=== PATIENT | female | born 1940 | race Two or more races ===

== ENCOUNTER 2022-08-06 10:37 | Inpatient (IN) | payer MEDICAID, OTHER ==
[~2022-08-06] VITALS: Ht 157.5 cm; Wt 38.8 kg
[2022-08-06] MEDS ORDERED: ACETAMINOPHEN 325 MG TAB PO ONE (11:00)
[2022-08-06] MEDS ORDERED: SODIUM CHLORIDE 0.9% 500 ML IVB ONE (11:00)
[2022-08-06 11:25] LABS: Basophils # (auto) 0.1 10 ^3/uL (0-0.2); Eosinophils # (auto) 0.1 10 ^3/uL (0-0.8)
[2022-08-06 11:27] LABS: Basophils % (auto) 0.5 % (0.0-2.0); Eosinophils % (auto) 0.5 % (0.0-7.0); Hematocrit 39.1 % (36.0-46.0); Hemoglobin 12.5 g/dL (12.2-16.2); Lymphocytes # (auto) 0.9 10 ^3/uL (0.4-5.4); Lymphocytes % (auto) 6.6 % (10.0-50.0); Monocytes # (auto) 0.6 10 ^3/uL (0-1.3); Monocytes % (auto) 4.6 % (0.0-12.0); Neutrophils % (auto) 87.8 % (37.0-80.0); Nucleated Red Blood Cells % 0.1 %; Red Blood Cells 5.43 10^6/uL (4.0-5.20); White Blood Cell 13.7 10^3/uL (4.4-10.8)
[2022-08-06 11:42] LABS: INR 1.03 (0.9-1.15); Partial Thromboplastin Time 29.6 sec (24.6-33.4)
[2022-08-06] MEDS ORDERED: cefTRIAXone 1GM/50ML D5W 50 ML IV ONE (11:45)
[2022-08-06] MEDS ORDERED: levoFLOXacin 500MG 100 ML IV ONE (11:45)
[2022-08-06 11:58] LABS: Albumin 2.8 g/dL (3.4-5.0); Calcium 9.9 mg/dL (8.5-10.1); Magnesium 2.5 mg/dL (1.6-2.6); Potassium 5.1 mmol/L (3.5-5.1)
[2022-08-06 12:02] LABS: BUN/Creatinine Ratio 14.6 (10.0-20.0); Bilirubin, Total 0.4 mg/dL (0.2-1.0); Total Protein 7.3 g/dL (6.4-8.2)
[2022-08-06 12:12] LABS: Red Cell Distribution Width 20.4 % (11.8-14.3)
[2022-08-06] MEDS ORDERED: NITROGLYCERIN 0.4 MG SL TAB SL PRN (13:00)
[2022-08-06] MEDS ORDERED: MORPHINE SULFATE INJ 2 MG/ml SYRG IV PRN (13:00)
[2022-08-06] MEDS ORDERED: levoFLOXacin 250MG 50 ML IV SCH (13:15)
[2022-08-06] MEDS ORDERED: PANTOPRAZOLE 40 MG/10 ML VIAL INJ IV ONE (13:15)
[2022-08-06 13:37] LABS: Urine WBC None Seen /hpf (0 - 5)
[2022-08-06] MEDS ORDERED: ALBUTEROL SULF 2.5 MG/0.5ML(0.5%) NEB SOLN NEB PRN (13:45)
[2022-08-06 13:54] LABS: Urine Bacteria NONE SEEN /hpf (None Seen); Urine Blood Negative /uL (Negative); Urine Specific Gravity 1.007 (1.001-1.035)
[2022-08-06] MEDS: SODIUM CHLORIDE 0.9% 1,000 ML IV SCH (14:12)
[2022-08-06] MEDS: AZITHROMYCIN 500MG/ 250ML 250 ML IV SCH (14:40)
[2022-08-06] MEDS: ALBUTEROL SULF 2.5 MG/0.5ML(0.5%) NEB SOLN NEB SCH ×3 (15:08→22:11)
[2022-08-06] MEDS: IPRATROPIUM BROM 0.5 MG/2.5ML INH SOL NEB SCH ×3 (15:10→22:11)
[2022-08-06 15:21] LABS: Protein, Urine 69.6 mg/dL (0.0-11.9)
[2022-08-06 15:25] LABS: % Iron Saturation 6.1 % (15-50)
[2022-08-06 15:50] VITALS: BP 91/43
[2022-08-06] MEDS ORDERED: ALBUMIN 5% 50 ML IV ONE ×2 (16:30)
[2022-08-06 18:40] LABS: Hepatitis C Antibody Negative (Negative)
[2022-08-07] MEDS: ALBUTEROL SULF 2.5 MG/0.5ML(0.5%) NEB SOLN NEB SCH ×6 (01:58→22:13)
[2022-08-07] MEDS: IPRATROPIUM BROM 0.5 MG/2.5ML INH SOL NEB SCH ×6 (01:58→22:12)
[2022-08-07] MEDS: SODIUM CHLORIDE 0.9% 1,000 ML IV SCH ×2 (03:59→15:40)
[2022-08-07 06:08] LABS: Calcium 9.2 mg/dL (8.5-10.1); Potassium 4.2 mmol/L (3.5-5.1)
[2022-08-07 06:11] LABS: BUN/Creatinine Ratio 13.6 (10.0-20.0)
[2022-08-07 06:14] LABS: Bilirubin, Total 0.2 mg/dL (0.2-1.0); Total Protein 6.4 g/dL (6.4-8.2)
[2022-08-07 06:22] LABS: Eosinophils # (auto) 0.1 10 ^3/uL (0-0.8); Monocytes # (auto) 0.7 10 ^3/uL (0-1.3); Neutrophils # (auto) 8.8 10 ^3/uL (1.6-8.6); White Blood Cell 10.5 10^3/uL (4.4-10.8)
[2022-08-07 06:24] LABS: Basophils # (auto) 0 10 ^3/uL (0-0.2); Basophils % (auto) 0.4 % (0.0-2.0); Eosinophils % (auto) 0.8 % (0.0-7.0); Hematocrit 33.4 % (36.0-46.0); Hemoglobin 10.5 g/dL (12.2-16.2); Lymphocytes # (auto) 0.8 10 ^3/uL (0.4-5.4); Lymphocytes % (auto) 7.6 % (10.0-50.0); Mean Corpuscular Hemoglobin 23.1 pg (28.0-32.0); Mean Corpuscular Hgb Conc. 31.4 g/dL (32.0-36.0); Mean Corpuscular Volume 73.5 fL (80.0-100.0); Neutrophils % (auto) 84.2 % (37.0-80.0); Red Blood Cells 4.54 10^6/uL (4.0-5.20); Red Cell Distribution Width 19.6 % (11.8-14.3)
[2022-08-07] MEDS: ACETAMINOPHEN 325 MG TAB PO PRN ×2 (06:56→23:36)
[2022-08-07] MEDS: cefTRIAXone 1GM/50ML D5W 50 ML IV SCH (09:07)
[2022-08-07] MEDS: PANTOPRAZOLE 40 MG/10 ML VIAL INJ IV SCH (10:15)
[2022-08-07] MEDS: AZITHROMYCIN 500MG/ 250ML 250 ML IV SCH (10:16)
[2022-08-07] MEDS: ENOXAPARIN SOD 30 MG/0.3 ML SYRINGE SC SCH (10:16)
[2022-08-07 16:42] VITALS: BP 152/82
[2022-08-07 22:00] VITALS: BP 156/100
[2022-08-07] MEDS ORDERED: ALPR0.5T8 PO (22:51)
[2022-08-08] MEDS ORDERED: ALPRAZolam 0.25 MG TAB PO ONE ×2 (00:45→01:00)
[2022-08-08] MEDS ORDERED: ALPRAZolam 0.25 MG TAB PO PRN ×5 (01:00→22:00)
[2022-08-08] MEDS: IPRATROPIUM BROM 0.5 MG/2.5ML INH SOL NEB SCH ×6 (02:00→21:44)
[2022-08-08] MEDS: ALBUTEROL SULF 2.5 MG/0.5ML(0.5%) NEB SOLN NEB SCH ×6 (02:00→21:44)
[2022-08-08 05:00] VITALS: BP 133/83
[2022-08-08] MEDS: SODIUM CHLORIDE 0.9% 1,000 ML IV SCH ×2 (05:10→16:00)
[2022-08-08 08:10] VITALS: BP 119/66
[2022-08-08 09:00] VITALS: BP 119/66
[2022-08-08] MEDS: PANTOPRAZOLE 40 MG/10 ML VIAL INJ IV SCH (09:15)
[2022-08-08] MEDS: ENOXAPARIN SOD 30 MG/0.3 ML SYRINGE SC SCH (09:15)
[2022-08-08] MEDS: cefTRIAXone 1GM/50ML D5W 50 ML IV SCH (09:15)
[2022-08-08] MEDS: AZITHROMYCIN 500MG/ 250ML 250 ML IV SCH (10:26)
[2022-08-08 13:00] VITALS: BP 122/72
[2022-08-08 14:43] LABS: Basophils % (auto) 0.5 % (0.0-2.0); Eosinophils # (auto) 0.2 10 ^3/uL (0-0.8); Hemoglobin 11.4 g/dL (12.2-16.2); Monocytes # (auto) 0.6 10 ^3/uL (0-1.3); Neutrophils # (auto) 7.2 10 ^3/uL (1.6-8.6); Nucleated Red Blood Cells % 0.1 %
[2022-08-08 14:44] LABS: Basophils # (auto) 0 10 ^3/uL (0-0.2); Eosinophils % (auto) 1.8 % (0.0-7.0); Hematocrit 35.6 % (36.0-46.0); Lymphocytes # (auto) 1.6 10 ^3/uL (0.4-5.4); Mean Corpuscular Hemoglobin 23.1 pg (28.0-32.0); Mean Corpuscular Hgb Conc. 31.9 g/dL (32.0-36.0); Mean Corpuscular Volume 72.4 fL (80.0-100.0); Monocytes % (auto) 5.8 % (0.0-12.0); Neutrophils % (auto) 74.9 % (37.0-80.0); Red Blood Cells 4.92 10^6/uL (4.0-5.20); Red Cell Distribution Width 20.1 % (11.8-14.3); White Blood Cell 9.7 10^3/uL (4.4-10.8)
[2022-08-08 15:17] LABS: BUN/Creatinine Ratio 13.6 (10.0-20.0); Calcium 9.5 mg/dL (8.5-10.1); Potassium 4.3 mmol/L (3.5-5.1)
[2022-08-08 17:00] VITALS: BP 125/74
[2022-08-08 22:00] VITALS: BP 136/78
[2022-08-09] MEDS: SODIUM CHLORIDE 0.9% 1,000 ML IV SCH (01:59)
[2022-08-09] MEDS: ALBUTEROL SULF 2.5 MG/0.5ML(0.5%) NEB SOLN NEB SCH ×4 (02:00→14:30)
[2022-08-09] MEDS: IPRATROPIUM BROM 0.5 MG/2.5ML INH SOL NEB SCH ×4 (02:00→14:30)
[2022-08-09 05:00] VITALS: BP 146/87
[2022-08-09] MEDS: cefTRIAXone 1GM/50ML D5W 50 ML IV SCH (08:41)
[2022-08-09] MEDS: PANTOPRAZOLE 40 MG/10 ML VIAL INJ IV SCH (08:41)
[2022-08-09] MEDS: ENOXAPARIN SOD 30 MG/0.3 ML SYRINGE SC SCH (08:41)
[2022-08-09 09:00] VITALS: BP 153/78
[2022-08-09] MEDS: AZITHROMYCIN 500MG/ 250ML 250 ML IV SCH (10:13)
[2022-08-09 10:48] VITALS: BP 133/78
[2022-08-09 13:00] VITALS: BP 116/76
[2022-08-09] MEDS ORDERED: AZIT250T8 PO (16:30)
[2022-08-09 16:48] VITALS: BP 142/87
[2022-08-09 16:51] VITALS: BP 142/87
[2022-08-10] MEDS ORDERED: LACT10SO3 PO (16:30)
== END 2022-08-09 18:30 | disposition home or self-care (01) | DRG 720 ==
LOC: ER 10:37 → TELE 13:03 → TELE-WESTW 08-07 15:27
PROVIDERS: ADMIT Nurse Practitioner Family; ATTEND Internal Medicine
DX: A41.9 Sepsis, unspecified organism (principal); N17.0 Acute kidney failure with tubular necrosis; J96.01 Acute respiratory failure with hypoxia; J15.6 Pneumonia due to other Gram-negative bacteria; I12.0 Hypertensive chronic kidney disease with stage 5 chronic kidney disease or end stage renal disease; N18.6 End stage renal disease; E11.22 Type 2 diabetes mellitus with diabetic chronic kidney disease; Z20.822 Contact with and (suspected) exposure to COVID-19; J44.0 Chronic obstructive pulmonary disease with (acute) lower respiratory infection; E86.0 Dehydration; E78.5 Hyperlipidemia, unspecified; E11.40 Type 2 diabetes mellitus with diabetic neuropathy, unspecified; F41.9 Anxiety disorder, unspecified; K21.9 Gastro-esophageal reflux disease without esophagitis; Z86.11 Personal history of tuberculosis; E88.09 Other disorders of plasma-protein metabolism, not elsewhere classified
CPT/HCPCS: 36415; 70450; 71045; 76775; 80048; 80053; 81001; 82140; 82306; 82570; 82728; 83036; 83540; 83550; 83605; 83735; 83970; 84100; 84156; 84300; 84484; 85025; 85610; 85730; 86803; 87040; 87340; 87426; 93005; 94640; 96365; 96368; 96375; 97110; 97116; 97163; 97530; 99291; C9113; G0378; J0696; J1956

== ENCOUNTER 2022-08-10 11:48 | Emergency (ER) | payer MEDICAID ==
[~2022-08-10] VITALS: Ht 152.4 cm; Wt 46.0 kg
[~2022-08-10 11:48] MED LIST: ALPR0.5T8 PO; AZIT250T8 PO
[2022-08-10] MEDS ORDERED: FLEET ENEMA(ADULT) 135 ML PR ONE ×2 (14:15)
[2022-08-10] MEDS ORDERED: LACTULOSE 20Gm/30ML SOLN PO ONE (14:15)
[2022-08-10 16:25] VITALS: BP 148/92
[2022-08-10] MEDS ORDERED: LACT10SO3 PO (16:30)
== END 2022-08-10 16:54 | disposition home or self-care (01) ==
LOC: ER 11:48
DX: K59.00 Constipation, unspecified (principal); K21.9 Gastro-esophageal reflux disease without esophagitis; Z88.0 Allergy status to penicillin; Z88.1 Allergy status to other antibiotic agents
CPT/HCPCS: 74018

== ENCOUNTER 2022-09-06 11:09 | Inpatient (IN) | payer MEDICAID ==
[~2022-09-06] VITALS: Ht 154.9 cm; Wt 40.3 kg
[~2022-09-06 11:09] MED LIST changes: +AZIT-81 PO; -AZIT250T8 PO; +LACT10SO3 PO
[2022-09-06] MEDS ORDERED: HYDROcodone-ACET 5/325MG TAB PO ONE (13:00)
[2022-09-06 13:35] LABS: Basophils # (auto) 0.1 10 ^3/uL (0-0.2); Basophils % (auto) 1.1 % (0.0-2.0); Eosinophils # (auto) 0.4 10 ^3/uL (0-0.8); Eosinophils % (auto) 5.3 % (0.0-7.0); Hemoglobin 11.9 g/dL (12.2-16.2); Monocytes # (auto) 0.7 10 ^3/uL (0-1.3); Neutrophils # (auto) 4.4 10 ^3/uL (1.6-8.6)
[2022-09-06 13:37] LABS: Hematocrit 36.8 % (36.0-46.0); Lymphocytes # (auto) 1.7 10 ^3/uL (0.4-5.4); Lymphocytes % (auto) 23.3 % (10.0-50.0); Mean Corpuscular Hemoglobin 23.2 pg (28.0-32.0); Mean Corpuscular Hgb Conc. 32.4 g/dL (32.0-36.0); Mean Corpuscular Volume 71.8 fL (80.0-100.0); Neutrophils % (auto) 61.3 % (37.0-80.0); Nucleated Red Blood Cells % 0.1 %; Red Blood Cells 5.13 10^6/uL (4.0-5.20); Red Cell Distribution Width 18.9 % (11.8-14.3); White Blood Cell 7.3 10^3/uL (4.4-10.8)
[2022-09-06 14:20] LABS: Potassium 4.7 mmol/L (3.5-5.1)
[2022-09-06 14:30] LABS: Albumin 2.7 g/dL (3.4-5.0); BUN/Creatinine Ratio 12.3 (10.0-20.0); Bilirubin, Total 0.4 mg/dL (0.2-1.0); Calcium 9.4 mg/dL (8.5-10.1)
[2022-09-06] MEDS ORDERED: SODIUM CHLORIDE 0.9% 1,000 ML IV ONE (17:00)
[2022-09-06] MEDS ORDERED: VANCOMYCIN 1GM/250ML 250 ML IV ONE (17:00)
[2022-09-06] MEDS ORDERED: MORPHINE SULFATE INJ 2 MG/ml SYRG IV PRN (18:15)
[2022-09-06 19:32] LABS: Uric Acid 5.5 mg/dL (2.6-6.0)
[2022-09-06] MEDS: SODIUM CHLORIDE 0.9% 1,000 ML IV SCH (19:36)
[2022-09-06 19:41] LABS: CRP High Sensitivity 7.12 mg/dL (< 0.3)
[2022-09-06 19:46] LABS: INR 1.08 (0.9-1.15); Partial Thromboplastin Time 32.2 sec (24.6-33.4)
[2022-09-07 04:55] LABS: Basophils # (auto) 0.1 10 ^3/uL (0-0.2); Basophils % (auto) 0.8 % (0.0-2.0); Eosinophils # (auto) 0.4 10 ^3/uL (0-0.8); Mean Corpuscular Hemoglobin 23.2 pg (28.0-32.0); Mean Corpuscular Hgb Conc. 32.5 g/dL (32.0-36.0)
[2022-09-07 04:56] LABS: Hematocrit 36.6 % (36.0-46.0); Hemoglobin 11.9 g/dL (12.2-16.2); Lymphocytes # (auto) 1.5 10 ^3/uL (0.4-5.4); Lymphocytes % (auto) 17.7 % (10.0-50.0); Mean Corpuscular Volume 71.6 fL (80.0-100.0); Monocytes # (auto) 0.6 10 ^3/uL (0-1.3); Monocytes % (auto) 6.6 % (0.0-12.0); Neutrophils # (auto) 5.8 10 ^3/uL (1.6-8.6); Neutrophils % (auto) 69.9 % (37.0-80.0); Nucleated Red Blood Cells % 0.1 %; Red Blood Cells 5.11 10^6/uL (4.0-5.20); Red Cell Distribution Width 19.2 % (11.8-14.3); White Blood Cell 8.4 10^3/uL (4.4-10.8)
[2022-09-07 05:17] LABS: BUN/Creatinine Ratio 13.5 (10.0-20.0); Calcium 9.2 mg/dL (8.5-10.1); Potassium 4.7 mmol/L (3.5-5.1)
[2022-09-07] MEDS: ENOXAPARIN SOD 30 MG/0.3 ML SYRINGE SC SCH (08:41)
[2022-09-07] MEDS: SODIUM CHLORIDE 0.9% 1,000 ML IV SCH (10:55)
[2022-09-07] MEDS: ceFAZolin 1GM/50ML 50 ML IV SCH ×2 (14:13→21:58)
[2022-09-07] MEDS ORDERED: POLYETHYLENE GLYCOL 17 GM PWDR PO ONE (15:30)
[2022-09-07] MEDS ORDERED: LACTULOSE 20Gm/30ML SOLN PO PRN (15:30)
[2022-09-07 15:35] VITALS: BP 143/80
[2022-09-07] MEDS: SOD CHL 0.45% 1,000 ML IV SCH (16:23)
[2022-09-07 16:54] VITALS: BP 143/80
[2022-09-07 20:00] VITALS: BP 134/77
[2022-09-07] MEDS ORDERED: TEMAZEPAM 15 MG CAP PO ONE (21:00)
[2022-09-07 21:05] LABS: Urine Bacteria NONE SEEN /hpf (None Seen); Urine Blood Negative /uL (Negative); Urine Specific Gravity 1.006 (1.001-1.035); Urine WBC 9 /hpf (0 - 5)
[2022-09-07 22:00] VITALS: BP 134/77
[2022-09-08] VITALS (9 sets, daily range): BP systolic 134–169; BP diastolic 66–79
[2022-09-08] MEDS: SOD CHL 0.45% 1,000 ML IV SCH ×2 (03:25→11:17)
[2022-09-08] MEDS: ceFAZolin 1GM/50ML 50 ML IV SCH (05:45)
[2022-09-08 06:13] LABS: BUN/Creatinine Ratio 13.6 (10.0-20.0); Calcium 9.5 mg/dL (8.5-10.1); Potassium 4.1 mmol/L (3.5-5.1)
[2022-09-08 06:25] LABS: Basophils # (auto) 0.1 10 ^3/uL (0-0.2); Basophils % (auto) 0.8 % (0.0-2.0); Eosinophils # (auto) 0.3 10 ^3/uL (0-0.8); Eosinophils % (auto) 3.5 % (0.0-7.0); Hematocrit 35.2 % (36.0-46.0); Hemoglobin 11.4 g/dL (12.2-16.2); Lymphocytes # (auto) 1.9 10 ^3/uL (0.4-5.4); Lymphocytes % (auto) 25.7 % (10.0-50.0); Mean Corpuscular Hemoglobin 23.2 pg (28.0-32.0); Mean Corpuscular Hgb Conc. 32.3 g/dL (32.0-36.0); Mean Corpuscular Volume 71.8 fL (80.0-100.0); Monocytes # (auto) 0.7 10 ^3/uL (0-1.3); Monocytes % (auto) 9.4 % (0.0-12.0); Neutrophils # (auto) 4.4 10 ^3/uL (1.6-8.6); Neutrophils % (auto) 60.6 % (37.0-80.0); Nucleated Red Blood Cells % 0.1 %; Red Cell Distribution Width 18.8 % (11.8-14.3); White Blood Cell 7.3 10^3/uL (4.4-10.8)
[2022-09-08] MEDS ORDERED: BUPIVACAINE HCL 50 ML ONE (08:14)
[2022-09-08] MEDS ORDERED: VANCOMYCIN HCL 1000 MG VL ONE (08:18)
[2022-09-08] MEDS ORDERED: GENTAMICIN SULFATE 2 ML ONE (08:18)
[2022-09-08] MEDS ORDERED: MIDAZOLAM HCL 2MG/2ML 2ml VIAL (1mg/ml) ONE (08:51)
[2022-09-08] MEDS ORDERED: fentaNYL CITRATE 100 MCG/2 ML VL ONE (08:51)
[2022-09-08] MEDS ORDERED: SUCCINYLCHOLINE CHLORIDE 20 MG/ML 10ML VIAL IV ONE (08:53)
[2022-09-08] MEDS ORDERED: ONDANSETRON HCL 4 MG/2 ML VIAL ONE (09:01)
[2022-09-08] MEDS ORDERED: LIDOCAINE 2% (LOCAL ANESTH.) PF 5ml SDV ONE (09:01)
[2022-09-08] MEDS ORDERED: NALOXONE HCL 0.4 MG/ML VIAL ONE (09:43)
[2022-09-08] MEDS ORDERED: LACTATED RINGER'S 1,000 ML IV SCH (09:45)
[2022-09-08] MEDS ORDERED: MORPHINE SULFATE INJ 2 MG/ml SYRG IV PRN (10:15)
[2022-09-08] MEDS ORDERED: ONDANSETRON HCL 4 MG/2 ML VIAL IV PRN (10:15)
[2022-09-08] MEDS ORDERED: PROPOFOL 10 MG/ML 20 ML IV ONE (10:38)
[2022-09-08] MEDS: ENOXAPARIN SOD 30 MG/0.3 ML SYRINGE SC SCH (11:17)
[2022-09-08] MEDS: ACETAMINOPHEN 325 MG TAB PO PRN (14:17)
[2022-09-08] MEDS ORDERED: TEMAZEPAM 15 MG CAP PO ONE (22:15)
[2022-09-09] VITALS (7 sets, daily range): BP systolic 148–164; BP diastolic 68–85
[2022-09-09] MEDS: SOD CHL 0.45% 1,000 ML IV SCH ×3 (04:08→15:09)
[2022-09-09 07:36] LABS: Basophils # (auto) 0.1 10 ^3/uL (0-0.2); Hemoglobin 11.2 g/dL (12.2-16.2); Lymphocytes # (auto) 1.7 10 ^3/uL (0.4-5.4); Monocytes # (auto) 0.6 10 ^3/uL (0-1.3)
[2022-09-09 07:38] LABS: Basophils % (auto) 1.1 % (0.0-2.0); Eosinophils # (auto) 0.4 10 ^3/uL (0-0.8); Hematocrit 34.9 % (36.0-46.0); Lymphocytes % (auto) 22.1 % (10.0-50.0); Mean Corpuscular Hemoglobin 23.3 pg (28.0-32.0); Mean Corpuscular Hgb Conc. 32.3 g/dL (32.0-36.0); Mean Corpuscular Volume 72.1 fL (80.0-100.0); Neutrophils # (auto) 4.9 10 ^3/uL (1.6-8.6); Neutrophils % (auto) 63.8 % (37.0-80.0); Red Blood Cells 4.84 10^6/uL (4.0-5.20); White Blood Cell 7.7 10^3/uL (4.4-10.8)
[2022-09-09 07:44] LABS: BUN/Creatinine Ratio 13.2 (10.0-20.0); Potassium 4.7 mmol/L (3.5-5.1)
[2022-09-09] MEDS: PANTOPRAZOLE 40 MG TAB PO SCH (09:37)
[2022-09-09] MEDS: ENOXAPARIN SOD 30 MG/0.3 ML SYRINGE SC SCH (09:40)
[2022-09-09] MEDS: cefTRIAXone 1GM/50ML D5W 50 ML IV SCH (12:08)
[2022-09-09] MEDS: ACETAMINOPHEN 325 MG TAB PO PRN (17:24)
[2022-09-09] MEDS: DOCUSATE SOD 100 MG CAP PO SCH (21:06)
[2022-09-09] MEDS: ALPRAZolam 0.25 MG TAB PO PRN (21:06)
[2022-09-10] MEDS: SOD CHL 0.45% 1,000 ML IV SCH ×3 (00:57→20:48)
[2022-09-10 05:00] VITALS: BP 155/77
[2022-09-10 06:24] LABS: Basophils # (auto) 0.1 10 ^3/uL (0-0.2); Basophils % (auto) 0.8 % (0.0-2.0); Eosinophils # (auto) 0.5 10 ^3/uL (0-0.8); Eosinophils % (auto) 6.4 % (0.0-7.0); Hematocrit 32.5 % (36.0-46.0); Hemoglobin 10.4 g/dL (12.2-16.2); Lymphocytes # (auto) 1.7 10 ^3/uL (0.4-5.4); Lymphocytes % (auto) 21.9 % (10.0-50.0); Mean Corpuscular Hemoglobin 23.2 pg (28.0-32.0); Mean Corpuscular Hgb Conc. 32.2 g/dL (32.0-36.0); Monocytes # (auto) 0.6 10 ^3/uL (0-1.3); Monocytes % (auto) 7.2 % (0.0-12.0); Neutrophils # (auto) 5.1 10 ^3/uL (1.6-8.6); Neutrophils % (auto) 63.7 % (37.0-80.0); Red Blood Cells 4.51 10^6/uL (4.0-5.20); Red Cell Distribution Width 19.4 % (11.8-14.3); White Blood Cell 7.9 10^3/uL (4.4-10.8)
[2022-09-10 06:47] LABS: BUN/Creatinine Ratio 11.9 (10.0-20.0); Calcium 9.5 mg/dL (8.5-10.1); Potassium 4.2 mmol/L (3.5-5.1)
[2022-09-10 08:00] VITALS: BP 137/66
[2022-09-10] MEDS: cefTRIAXone 1GM/50ML D5W 50 ML IV SCH (08:39)
[2022-09-10] MEDS: ONDANSETRON HCL 4 MG/2 ML VIAL IV PRN ×3 (08:52→09:46)
[2022-09-10] MEDS: ENOXAPARIN SOD 30 MG/0.3 ML SYRINGE SC SCH (09:44)
[2022-09-10] MEDS: DOCUSATE SOD 100 MG CAP PO SCH ×2 (09:44→20:58)
[2022-09-10] MEDS: PANTOPRAZOLE 40 MG TAB PO SCH (09:44)
[2022-09-10 12:00] VITALS: BP 140/68
[2022-09-10] MEDS: ALPRAZolam 0.25 MG TAB PO PRN (17:31)
[2022-09-10 20:00] VITALS: BP 164/82
[2022-09-10] MEDS: ACETAMINOPHEN 325 MG TAB PO PRN (20:59)
[2022-09-10 22:00] VITALS: BP 143/70
[2022-09-11 05:00] VITALS: BP 146/68
[2022-09-11 06:26] LABS: Basophils # (auto) 0.1 10 ^3/uL (0-0.2); Eosinophils # (auto) 0.3 10 ^3/uL (0-0.8); Hemoglobin 10.3 g/dL (12.2-16.2); Lymphocytes # (auto) 1.7 10 ^3/uL (0.4-5.4); Monocytes # (auto) 0.7 10 ^3/uL (0-1.3)
[2022-09-11 06:28] LABS: Calcium 9.3 mg/dL (8.5-10.1); Potassium 4.5 mmol/L (3.5-5.1)
[2022-09-11 06:29] LABS: Basophils % (auto) 1.1 % (0.0-2.0); Eosinophils % (auto) 4.5 % (0.0-7.0); Hematocrit 31.8 % (36.0-46.0); Lymphocytes % (auto) 24.4 % (10.0-50.0); Mean Corpuscular Hemoglobin 23.2 pg (28.0-32.0); Mean Corpuscular Hgb Conc. 32.4 g/dL (32.0-36.0); Mean Corpuscular Volume 71.6 fL (80.0-100.0); Monocytes % (auto) 10.2 % (0.0-12.0); Neutrophils # (auto) 4.2 10 ^3/uL (1.6-8.6); Neutrophils % (auto) 59.8 % (37.0-80.0); Nucleated Red Blood Cells % 0.1 %; Red Blood Cells 4.44 10^6/uL (4.0-5.20); Red Cell Distribution Width 19.5 % (11.8-14.3)
[2022-09-11] MEDS: PANTOPRAZOLE 40 MG TAB PO SCH (08:14)
[2022-09-11] MEDS: ENOXAPARIN SOD 30 MG/0.3 ML SYRINGE SC SCH (08:14)
[2022-09-11] MEDS: SOD CHL 0.45% 1,000 ML IV SCH (08:14)
[2022-09-11] MEDS: DOCUSATE SOD 100 MG CAP PO SCH ×2 (08:14→20:05)
[2022-09-11] MEDS: cefTRIAXone 1GM/50ML D5W 50 ML IV SCH (08:14)
[2022-09-11] MEDS: amLODIPine BESYLATE 5 MG TAB PO SCH (12:12)
[2022-09-11 13:00] VITALS: BP 164/75
[2022-09-11 17:00] VITALS: BP 152/73
[2022-09-11] MEDS: Ensure Enlive Strawberry 8oz Bottle PO SCH (18:00)
[2022-09-11 20:00] VITALS: BP 159/84
[2022-09-11] MEDS: ALPRAZolam 0.25 MG TAB PO PRN (20:05)
[2022-09-11 22:00] VITALS: BP 159/84
[2022-09-12 05:00] VITALS: BP 161/83
[2022-09-12 06:00] VITALS: BP 154/83
[2022-09-12] MEDS: Ensure Enlive Strawberry 8oz Bottle PO SCH ×3 (08:00→17:50)
[2022-09-12 09:00] VITALS: BP 135/67
[2022-09-12] MEDS: cefTRIAXone 1GM/50ML D5W 50 ML IV SCH (09:27)
[2022-09-12] MEDS: PANTOPRAZOLE 40 MG TAB PO SCH (09:28)
[2022-09-12] MEDS: DOCUSATE SOD 100 MG CAP PO SCH ×2 (09:29→20:50)
[2022-09-12] MEDS: ENOXAPARIN SOD 30 MG/0.3 ML SYRINGE SC SCH (09:29)
[2022-09-12] MEDS: amLODIPine BESYLATE 5 MG TAB PO SCH (09:30)
[2022-09-12] MEDS ORDERED: VANCOMYCIN PER PHARMACY 0 MG IV SCH (11:15)
[2022-09-12] MEDS ORDERED: MICAFUNGIN SODIUM 100 MG in SODIUM CHL 0.9% 100 ML IV SCH (12:00)
[2022-09-12] MEDS ORDERED: VANCOMYCIN 1GM/250ML 250 ML IV ONE (12:00)
[2022-09-12 13:00] VITALS: BP 146/84
[2022-09-12] MEDS: DAPTOmycin 250 MG in SODIUM CHL 0.9% 50 ML IV SCH (13:45)
[2022-09-12 17:00] VITALS: BP 119/74
[2022-09-12 17:41] LABS: INR 1.06 (0.9-1.15); Partial Thromboplastin Time 32.9 sec (24.6-33.4)
[2022-09-12] MEDS: ONDANSETRON HCL 4 MG/2 ML VIAL IV PRN (20:21)
[2022-09-12] MEDS: ALPRAZolam 0.25 MG TAB PO PRN (20:21)
[2022-09-12 22:00] VITALS: BP 145/74
[2022-09-13 05:00] VITALS: BP 150/73
[2022-09-13 09:00] VITALS: BP 133/72
[2022-09-13] MEDS: ONDANSETRON HCL 4 MG/2 ML VIAL IV PRN (09:33)
[2022-09-13] MEDS: ENOXAPARIN SOD 30 MG/0.3 ML SYRINGE SC SCH (09:36)
[2022-09-13] MEDS: PANTOPRAZOLE 40 MG TAB PO SCH (09:36)
[2022-09-13] MEDS: DOCUSATE SOD 100 MG CAP PO SCH ×2 (09:36→22:33)
[2022-09-13] MEDS: cefTRIAXone 1GM/50ML D5W 50 ML IV SCH (09:36)
[2022-09-13] MEDS: amLODIPine BESYLATE 5 MG TAB PO SCH (09:43)
[2022-09-13] MEDS: Ensure Enlive Strawberry 8oz Bottle PO SCH ×2 (09:47→18:00)
[2022-09-13 13:00] VITALS: BP 127/65
[2022-09-13 17:00] VITALS: BP 134/71
[2022-09-13 22:00] VITALS: BP 146/69
[2022-09-13] MEDS: ALPRAZolam 0.25 MG TAB PO PRN (22:33)
[2022-09-14 05:00] VITALS: BP 136/65
[2022-09-14] MEDS: PANTOPRAZOLE 40 MG TAB PO SCH (08:36)
[2022-09-14] MEDS: amLODIPine BESYLATE 5 MG TAB PO SCH (08:39)
[2022-09-14] MEDS: DOCUSATE SOD 100 MG CAP PO SCH ×2 (08:39→21:07)
[2022-09-14] MEDS: ENOXAPARIN SOD 30 MG/0.3 ML SYRINGE SC SCH (08:40)
[2022-09-14] MEDS: cefTRIAXone 1GM/50ML D5W 50 ML IV SCH (08:40)
[2022-09-14] MEDS: Ensure Enlive Strawberry 8oz Bottle PO SCH ×3 (08:45→19:29)
[2022-09-14 09:00] VITALS: BP 146/69
[2022-09-14] MEDS: DAPTOmycin 250 MG in SODIUM CHL 0.9% 50 ML IV SCH (12:00)
[2022-09-14 13:00] VITALS: BP 127/63
[2022-09-14] MEDS: MICAFUNGIN SODIUM 100 MG in SODIUM CHL 0.9% 100 ML IV SCH (13:30)
[2022-09-14 17:00] VITALS: BP 142/69
[2022-09-14] MEDS ORDERED: METOCLOPRAMIDE HCL 5MG/ml INJ 2ml VIAL IV PRN (19:00)
[2022-09-14] MEDS: ALPRAZolam 0.25 MG TAB PO PRN (21:06)
[2022-09-14 22:00] VITALS: BP 150/73
[2022-09-15 05:00] VITALS: BP 132/82
[2022-09-15 09:00] VITALS: BP 150/67
[2022-09-15] MEDS: cefTRIAXone 1GM/50ML D5W 50 ML IV SCH (09:03)
[2022-09-15] MEDS: Ensure Enlive Strawberry 8oz Bottle PO SCH ×3 (09:05→18:00)
[2022-09-15] MEDS: ENOXAPARIN SOD 30 MG/0.3 ML SYRINGE SC SCH (09:51)
[2022-09-15] MEDS: DOCUSATE SOD 100 MG CAP PO SCH ×2 (09:52→22:00)
[2022-09-15] MEDS: amLODIPine BESYLATE 5 MG TAB PO SCH (09:52)
[2022-09-15] MEDS: MICAFUNGIN SODIUM 100 MG in SODIUM CHL 0.9% 100 ML IV SCH (09:53)
[2022-09-15] MEDS: PANTOPRAZOLE 40 MG TAB PO SCH (09:53)
[2022-09-15] MEDS: HYDROcodone-ACET 5/325MG TAB PO PRN (10:11)
[2022-09-15 13:00] VITALS: BP 117/55
[2022-09-15] MEDS ORDERED: CEFD300C2 PO (14:53)
[2022-09-15] MEDS ORDERED: DOXY-346 PO (14:53)
[2022-09-15] MEDS ORDERED: VORI50TA PO ×2 (14:53)
[2022-09-15 17:00] VITALS: BP 154/73
[2022-09-15 22:00] VITALS: BP 149/64
[2022-09-15] MEDS: ALPRAZolam 0.25 MG TAB PO PRN (22:18)
[2022-09-16 05:17] VITALS: BP 139/72
[2022-09-16 06:06] LABS: Eosinophils # (auto) 0.6 10 ^3/uL (0-0.8); Hemoglobin 11.1 g/dL (12.2-16.2); Mean Corpuscular Volume 71.8 fL (80.0-100.0); Monocytes # (auto) 0.8 10 ^3/uL (0-1.3); Nucleated Red Blood Cells % 0.1 %
[2022-09-16 06:09] LABS: Basophils # (auto) 0.3 10 ^3/uL (0-0.2); Basophils % (auto) 4.3 % (0.0-2.0); Eosinophils % (auto) 7.7 % (0.0-7.0); Hematocrit 34.3 % (36.0-46.0); Lymphocytes % (auto) 13.9 % (10.0-50.0); Mean Corpuscular Hemoglobin 23.2 pg (28.0-32.0); Mean Corpuscular Hgb Conc. 32.3 g/dL (32.0-36.0); Monocytes % (auto) 10.6 % (0.0-12.0); Neutrophils # (auto) 4.7 10 ^3/uL (1.6-8.6); Neutrophils % (auto) 63.5 % (37.0-80.0); Red Blood Cells 4.78 10^6/uL (4.0-5.20); White Blood Cell 7.4 10^3/uL (4.4-10.8)
[2022-09-16 06:11] LABS: INR 1.02 (0.9-1.15); Partial Thromboplastin Time 28.4 sec (24.6-33.4)
[2022-09-16 06:17] LABS: Calcium 10.5 mg/dL (8.5-10.1); Potassium 4.8 mmol/L (3.5-5.1)
[2022-09-16 06:19] LABS: BUN/Creatinine Ratio 17.4 (10.0-20.0)
[2022-09-16 06:20] LABS: Red Cell Distribution Width 20.3 % (11.8-14.3)
[2022-09-16 08:00] VITALS: BP 143/66
[2022-09-16] MEDS: Ensure Enlive Strawberry 8oz Bottle PO SCH ×3 (08:00→19:21)
[2022-09-16] MEDS ORDERED: FLUMAZENIL 0.1 MG/ML INJ 10ML MDV IV ONE (08:24)
[2022-09-16] MEDS ORDERED: NALOXONE HCL 0.4 MG/ML VIAL ONE (08:24)
[2022-09-16] MEDS ORDERED: SODIUM CHLORIDE LOCK 0 ML ONE (08:28)
[2022-09-16] MEDS ORDERED: LIDOCAINE VISCOUS 2% 15ML UD ONE ×2 (08:29→13:27)
[2022-09-16] MEDS ORDERED: MIDAZOLAM HCL 5 MG/ML-1ML VIAL ONE (08:29)
[2022-09-16] MEDS ORDERED: diphenhdrAMINE HCL 50 MG/1 ML VL ONE (08:30)
[2022-09-16] MEDS: DOCUSATE SOD 100 MG CAP PO SCH ×2 (10:00→21:58)
[2022-09-16] MEDS: ENOXAPARIN SOD 30 MG/0.3 ML SYRINGE SC SCH (10:00)
[2022-09-16] MEDS: cefTRIAXone 1GM/50ML D5W 50 ML IV SCH (10:15)
[2022-09-16] MEDS: MICAFUNGIN SODIUM 100 MG in SODIUM CHL 0.9% 100 ML IV SCH (10:15)
[2022-09-16] MEDS: amLODIPine BESYLATE 5 MG TAB PO SCH (10:18)
[2022-09-16] MEDS: PANTOPRAZOLE 40 MG TAB PO SCH (10:18)
[2022-09-16] MEDS ORDERED: ITRA100C2 PO (10:21)
[2022-09-16] MEDS: ONDANSETRON HCL 4 MG/2 ML VIAL IV PRN (10:36)
[2022-09-16 13:00] VITALS: BP 135/71
[2022-09-16] MEDS ORDERED: SODIUM CHLORIDE LOCK 10 ML ONE (13:27)
[2022-09-16] MEDS: HYDROcodone-ACET 5/325MG TAB PO PRN (14:26)
[2022-09-16] MEDS: DAPTOmycin 250 MG in SODIUM CHL 0.9% 50 ML IV SCH (14:26)
[2022-09-16] MEDS: fentaNYL CITRATE 100 MCG/2 ML VL ONE ×2 (16:03→16:05)
[2022-09-16 20:00] VITALS: BP 144/69
[2022-09-16] MEDS: ALPRAZolam 0.25 MG TAB PO PRN (21:58)
[2022-09-16 22:00] VITALS: BP 144/69
[2022-09-17 05:00] VITALS: BP 144/77
[2022-09-17] MEDS: Ensure Enlive Strawberry 8oz Bottle PO SCH ×3 (08:00→18:00)
[2022-09-17 09:00] VITALS: BP 136/70
[2022-09-17] MEDS: cefTRIAXone 1GM/50ML D5W 50 ML IV SCH (10:22)
[2022-09-17] MEDS: DOCUSATE SOD 100 MG CAP PO SCH ×2 (10:32→21:42)
[2022-09-17] MEDS: MICAFUNGIN SODIUM 100 MG in SODIUM CHL 0.9% 100 ML IV SCH (10:32)
[2022-09-17] MEDS: PANTOPRAZOLE 40 MG TAB PO SCH (10:32)
[2022-09-17] MEDS: ENOXAPARIN SOD 30 MG/0.3 ML SYRINGE SC SCH (10:33)
[2022-09-17] MEDS: amLODIPine BESYLATE 5 MG TAB PO SCH (10:33)
[2022-09-17 13:00] VITALS: BP 135/61
[2022-09-17 17:00] VITALS: BP 138/72
[2022-09-17 20:00] VITALS: BP 143/68
[2022-09-17] MEDS: ALPRAZolam 0.25 MG TAB PO PRN (21:42)
[2022-09-17 22:00] VITALS: BP 143/68
[2022-09-18 00:26] VITALS: BP 143/69
[2022-09-18 05:00] VITALS: BP 140/74
[2022-09-18 08:55] VITALS: BP 127/57
[2022-09-18] MEDS: Ensure Enlive Strawberry 8oz Bottle PO SCH ×3 (09:39→18:00)
[2022-09-18] MEDS: cefTRIAXone 1GM/50ML D5W 50 ML IV SCH (09:41)
[2022-09-18] MEDS: DOCUSATE SOD 100 MG CAP PO SCH ×2 (09:41→21:32)
[2022-09-18] MEDS: amLODIPine BESYLATE 5 MG TAB PO SCH (09:42)
[2022-09-18] MEDS: ENOXAPARIN SOD 30 MG/0.3 ML SYRINGE SC SCH (09:42)
[2022-09-18] MEDS: PANTOPRAZOLE 40 MG TAB PO SCH (09:42)
[2022-09-18] MEDS: MICAFUNGIN SODIUM 100 MG in SODIUM CHL 0.9% 100 ML IV SCH (09:50)
[2022-09-18 13:00] VITALS: BP 143/65
[2022-09-18] MEDS: DAPTOmycin 250 MG in SODIUM CHL 0.9% 50 ML IV SCH (14:24)
[2022-09-18 20:00] VITALS: BP 145/73
[2022-09-18] MEDS: ALPRAZolam 0.25 MG TAB PO PRN (21:32)
[2022-09-18 22:00] VITALS: BP 145/73
[2022-09-19 05:00] VITALS: BP 136/72
[2022-09-19 08:00] VITALS: BP 138/71
[2022-09-19] MEDS: Ensure Enlive Strawberry 8oz Bottle PO SCH ×2 (08:51→13:41)
[2022-09-19] MEDS: cefTRIAXone 1GM/50ML D5W 50 ML IV SCH (08:52)
[2022-09-19] MEDS: DOCUSATE SOD 100 MG CAP PO SCH ×2 (08:53→21:34)
[2022-09-19] MEDS: amLODIPine BESYLATE 5 MG TAB PO SCH (08:55)
[2022-09-19] MEDS: PANTOPRAZOLE 40 MG TAB PO SCH (09:01)
[2022-09-19] MEDS: ENOXAPARIN SOD 30 MG/0.3 ML SYRINGE SC SCH (09:02)
[2022-09-19 09:22] VITALS: BP 133/72
[2022-09-19] MEDS: MICAFUNGIN SODIUM 100 MG in SODIUM CHL 0.9% 100 ML IV SCH (13:40)
[2022-09-19 14:00] VITALS: BP 138/71
[2022-09-19 17:20] VITALS: BP 136/74
[2022-09-19] MEDS: ALPRAZolam 0.25 MG TAB PO PRN (21:34)
[2022-09-19 22:00] VITALS: BP 135/66
[2022-09-20 05:00] VITALS: BP 137/76
[2022-09-20] MEDS: Ensure Enlive Strawberry 8oz Bottle PO SCH ×4 (07:23→18:07)
[2022-09-20 08:00] VITALS: BP 134/67
[2022-09-20] MEDS: cefTRIAXone 1GM/50ML D5W 50 ML IV SCH (08:41)
[2022-09-20] MEDS: DOCUSATE SOD 100 MG CAP PO SCH ×2 (08:42→21:16)
[2022-09-20] MEDS: PANTOPRAZOLE 40 MG TAB PO SCH (08:44)
[2022-09-20] MEDS: amLODIPine BESYLATE 5 MG TAB PO SCH (08:44)
[2022-09-20] MEDS: ENOXAPARIN SOD 30 MG/0.3 ML SYRINGE SC SCH (08:45)
[2022-09-20 09:00] VITALS: BP 134/67
[2022-09-20] MEDS: MICAFUNGIN SODIUM 100 MG in SODIUM CHL 0.9% 100 ML IV SCH (10:36)
[2022-09-20] MEDS: DAPTOmycin 250 MG in SODIUM CHL 0.9% 50 ML IV SCH (12:47)
[2022-09-20 13:00] VITALS: BP 136/74
[2022-09-20 17:00] VITALS: BP 135/62
[2022-09-20] MEDS: ALPRAZolam 0.25 MG TAB PO PRN (21:16)
[2022-09-20 22:00] VITALS: BP 147/76
[2022-09-21 05:00] VITALS: BP 137/80
[2022-09-21] MEDS: Ensure Enlive Strawberry 8oz Bottle PO SCH ×2 (08:20→12:27)
[2022-09-21] MEDS: cefTRIAXone 1GM/50ML D5W 50 ML IV SCH (08:57)
[2022-09-21 09:19] VITALS: BP 136/79
[2022-09-21] MEDS: ENOXAPARIN SOD 30 MG/0.3 ML SYRINGE SC SCH (10:00)
[2022-09-21] MEDS: MICAFUNGIN SODIUM 100 MG in SODIUM CHL 0.9% 100 ML IV SCH (10:00)
[2022-09-21] MEDS: DOCUSATE SOD 100 MG CAP PO SCH (10:31)
[2022-09-21] MEDS: PANTOPRAZOLE 40 MG TAB PO SCH (10:31)
[2022-09-21] MEDS: amLODIPine BESYLATE 5 MG TAB PO SCH (10:33)
[2022-09-21 13:00] VITALS: BP 141/69
[2022-09-21 14:15] VITALS: BP 141/69
== END 2022-09-21 14:30 | disposition home or self-care (01) | DRG 313 ==
LOC: ER 11:09 → OVERFLOW 18:30 → CENTRAL 09-07 15:40
PROVIDERS: ADMIT Registered Nurse; ATTEND Nurse Practitioner Acute Care
PROC: 3E0V329 Introduction of Other Anti-infective into Bones, Percutaneous Approach (ICD-10-PCS; 2022-09-08)
PROC: 0QBG0ZZ Excision of Right Tibia, Open Approach (ICD-10-PCS; principal; 2022-09-08 08:52)
PROC: 0DB98ZX Excision of Duodenum, Via Natural or Artificial Opening Endoscopic, Diagnostic (ICD-10-PCS; 2022-09-16)
PROC: 0DB68ZX Excision of Stomach, Via Natural or Artificial Opening Endoscopic, Diagnostic (ICD-10-PCS; 2022-09-16)
DX: M86.8X6 Other osteomyelitis, lower leg (principal); N17.0 Acute kidney failure with tubular necrosis; M00.9 Pyogenic arthritis, unspecified; E43 Unspecified severe protein-calorie malnutrition; D63.1 Anemia in chronic kidney disease; E88.09 Other disorders of plasma-protein metabolism, not elsewhere classified; M06.9 Rheumatoid arthritis, unspecified; K21.9 Gastro-esophageal reflux disease without esophagitis; K44.9 Diaphragmatic hernia without obstruction or gangrene; K29.70 Gastritis, unspecified, without bleeding; I12.9 Hypertensive chronic kidney disease with stage 1 through stage 4 chronic kidney disease, or unspecified chronic kidney disease; N18.4 Chronic kidney disease, stage 4 (severe); E78.5 Hyperlipidemia, unspecified; F41.9 Anxiety disorder, unspecified; Z86.11 Personal history of tuberculosis; Z88.0 Allergy status to penicillin; Z79.899 Other long term (current) drug therapy; Z68.1 Body mass index [BMI] 19.9 or less, adult
CPT/HCPCS: 36415; 43239; 71045; 73560; 73562; 73700; 74018; 76000; 80048; 80053; 81001; 82550; 84484; 84550; 85025; 85610; 85652; 85730; 86141; 86431; 86701; 87075; 87086; 87205; 96361; 96365; 97110; 97116; 97163; 97530; G0378; J0330; J0690; J0696; J2001; J2248; J2250; J2405; J2704; J3490

== ENCOUNTER 2022-09-28 20:48 | Inpatient (IN) | payer MEDICAID ==
[~2022-09-28] VITALS: Ht 142.2 cm; Wt 38.0 kg
[~2022-09-28 20:48] MED LIST changes: -AZIT-81 PO; +CEFD300C2 PO; +DOXY-346 PO; +ITRA100C2 PO
[2022-09-28 21:54] LABS: Urine Bacteria NONE SEEN /hpf (None Seen); Urine Blood Negative /uL (Negative); Urine Hyaline Cast FEW /lpf (0 - 2); Urine Specific Gravity 1.009 (1.001-1.035); Urine WBC 1 /hpf (0 - 5)
[2022-09-28 22:06] LABS: Basophils # (auto) 0.1 10 ^3/uL (0-0.2); Eosinophils # (auto) 0 10 ^3/uL (0-0.8); Hemoglobin 12.4 g/dL (12.2-16.2); Lymphocytes # (auto) 0.9 10 ^3/uL (0.4-5.4); Mean Corpuscular Hgb Conc. 31.8 g/dL (32.0-36.0); Monocytes # (auto) 0.5 10 ^3/uL (0-1.3); White Blood Cell 11.8 10^3/uL (4.4-10.8)
[2022-09-28 22:08] LABS: Basophils % (auto) 0.8 % (0.0-2.0); Eosinophils % (auto) 0.2 % (0.0-7.0); Hematocrit 39.1 % (36.0-46.0); Lymphocytes % (auto) 7.7 % (10.0-50.0); Mean Corpuscular Hemoglobin 23.2 pg (28.0-32.0); Mean Corpuscular Volume 72.9 fL (80.0-100.0); Monocytes % (auto) 3.9 % (0.0-12.0); Neutrophils # (auto) 10.3 10 ^3/uL (1.6-8.6); Neutrophils % (auto) 87.4 % (37.0-80.0); Nucleated Red Blood Cells % 0.2 %; Red Blood Cells 5.36 10^6/uL (4.0-5.20)
[2022-09-28 22:29] LABS: Albumin 3.2 g/dL (3.4-5.0); Calcium 11.3 mg/dL (8.5-10.1); Magnesium 2.4 mg/dL (1.6-2.6); Potassium 4.9 mmol/L (3.5-5.1)
[2022-09-28 22:34] LABS: Lactic Acid w/Reflex 2.2 mmol/L (0.4-2.0)
[2022-09-28 22:39] LABS: BUN/Creatinine Ratio 25.1 (10.0-20.0); Total Protein 9.1 g/dL (6.4-8.2)
[2022-09-29] MEDS ORDERED: PIPERACILLIN-TAZOB 3.375GM 100 ML IV ONE (01:45)
[2022-09-29] MEDS ORDERED: LACTATED RINGER'S 1,550 ML IV ONE (01:45)
[2022-09-29] MEDS ORDERED: metroNIDAZOLE 500MG/100ML 100 ML IV ONE (01:45)
[2022-09-29] MEDS ORDERED: MORPHINE SULFATE 4 MG/ML SYR/VIAL IV ONE (02:30)
[2022-09-29] MEDS ORDERED: ONDANSETRON HCL 4 MG/2 ML VIAL IV ONE (02:30)
[2022-09-29] MEDS ORDERED: HYDROcodone-ACET 5/325MG TAB PO PRN (02:45)
[2022-09-29] MEDS ORDERED: ACETAMINOPHEN 325 MG TAB PO PRN (02:45)
[2022-09-29] MEDS ORDERED: SODIUM CHLORIDE 0.9% 1,000 ML IV SCH (02:45)
[2022-09-29] MEDS ORDERED: MORPHINE SULFATE INJ 2 MG/ml SYRG IV PRN (02:45)
[2022-09-29] MEDS: ONDANSETRON HCL 4 MG/2 ML VIAL IV PRN (05:56)
[2022-09-29] MEDS ORDERED: DOXYCYCLINE 100 MG TAB/CAP PO SCH (10:00)
[2022-09-29] MEDS ORDERED: ITRACONAZOLE 100 MG CAP PO SCH (10:00)
[2022-09-29] MEDS ORDERED: CEFDINIR 300 MG PO SCH (10:00)
[2022-09-29 13:45] VITALS: BP 158/81
[2022-09-29] MEDS: cefTRIAXone 1GM/50ML D5W 50 ML IV SCH (14:37)
[2022-09-29] MEDS: LACTATED RINGER'S 1,000 ML IV SCH ×2 (16:53→21:43)
[2022-09-29] MEDS: MORPHINE SULFATE INJ 2 MG/ml SYRG IV PRN (16:56)
[2022-09-29 17:00] VITALS: BP 153/76
[2022-09-29] MEDS ORDERED: OMEP20TA PO (18:59)
[2022-09-29] MEDS: MICAFUNGIN SODIUM 100 MG in SODIUM CHL 0.9% 100 ML IV SCH (20:33)
[2022-09-29 22:00] VITALS: BP 143/69
[2022-09-30] MEDS: MORPHINE SULFATE INJ 2 MG/ml SYRG IV PRN ×3 (04:51→15:55)
[2022-09-30 05:00] VITALS: BP_SYST 130; BP_SYST 151; BP_DIAS 43; BP_DIAS 76
[2022-09-30 08:05] LABS: Basophils # (auto) 0.1 10 ^3/uL (0-0.2); Basophils % (auto) 0.7 % (0.0-2.0); Eosinophils # (auto) 0.1 10 ^3/uL (0-0.8); Eosinophils % (auto) 0.4 % (0.0-7.0); Hematocrit 35.8 % (36.0-46.0); Hemoglobin 11.3 g/dL (12.2-16.2); Lymphocytes # (auto) 1.3 10 ^3/uL (0.4-5.4); Lymphocytes % (auto) 8.4 % (10.0-50.0); Mean Corpuscular Hemoglobin 23.9 pg (28.0-32.0); Mean Corpuscular Hgb Conc. 31.5 g/dL (32.0-36.0); Mean Corpuscular Volume 75.9 fL (80.0-100.0); Monocytes # (auto) 0.9 10 ^3/uL (0-1.3); Monocytes % (auto) 5.7 % (0.0-12.0); Neutrophils # (auto) 13.6 10 ^3/uL (1.6-8.6); Neutrophils % (auto) 84.8 % (37.0-80.0); Nucleated Red Blood Cells % 0.1 %; Red Blood Cells 4.72 10^6/uL (4.0-5.20)
[2022-09-30 08:07] LABS: Red Cell Distribution Width 24.1 % (11.8-14.3)
[2022-09-30] MEDS: cefTRIAXone 1GM/50ML D5W 50 ML IV SCH (08:46)
[2022-09-30] MEDS: ONDANSETRON HCL 4 MG/2 ML VIAL IV PRN (08:47)
[2022-09-30] MEDS: MICAFUNGIN SODIUM 100 MG in SODIUM CHL 0.9% 100 ML IV SCH (08:48)
[2022-09-30 09:00] VITALS: BP 143/74
[2022-09-30] MEDS: LACTATED RINGER'S 1,000 ML IV SCH ×2 (10:22→19:30)
[2022-09-30 12:16] LABS: Calcium 10.7 mg/dL (8.5-10.1); Potassium 4.9 mmol/L (3.5-5.1)
[2022-09-30 12:19] LABS: Albumin 2.6 g/dL (3.4-5.0); BUN/Creatinine Ratio 22.5 (10.0-20.0)
[2022-09-30 12:22] LABS: Bilirubin, Total 1.5 mg/dL (0.2-1.0); Total Protein 7.5 g/dL (6.4-8.2)
[2022-09-30 13:11] VITALS: BP 191/94
[2022-09-30 14:05] LABS: Lipase 2034 U/L (73-393)
[2022-09-30] MEDS ORDERED: hydrALAZINE HCL 20 MG/ML VL IV PRN (16:15)
[2022-09-30 17:00] VITALS: BP 181/109
[2022-09-30 22:00] VITALS: BP 133/50
[2022-10-01] VITALS (7 sets, daily range): BP systolic 127–150; BP diastolic 60–77
[2022-10-01 06:06] LABS: Albumin 2.4 g/dL (3.4-5.0); BUN/Creatinine Ratio 20.3 (10.0-20.0); Calcium 10.6 mg/dL (8.5-10.1); Potassium 4.5 mmol/L (3.5-5.1)
[2022-10-01 06:09] LABS: Bilirubin, Total 1.1 mg/dL (0.2-1.0); Total Protein 7.1 g/dL (6.4-8.2)
[2022-10-01] MEDS: LACTATED RINGER'S 1,000 ML IV SCH (06:59)
[2022-10-01] MEDS: MEROPENEM 1GM IVPB 100 ML IV SCH ×2 (10:46→21:33)
[2022-10-01] MEDS: MICAFUNGIN SODIUM 100 MG in SODIUM CHL 0.9% 100 ML IV SCH (10:46)
[2022-10-01] MEDS: SODIUM CHLORIDE 0.9% 1,000 ML IV SCH ×2 (11:09→21:33)
[2022-10-01] MEDS: amLODIPine BESYLATE 5 MG TAB PO SCH (11:13)
[2022-10-01 14:50] LABS: Hepatitis A Ab IgM Negative; Hepatitis B Core IgM Negative; Hepatitis C Antibody Negative (Negative)
[2022-10-01 15:09] LABS: Cholesterol 129 mg/dL (< 200); HDL Cholesterol 45 mg/dL (40-59); LDL Cholesterol 69 mg/dL (< 100); Triglycerides 60 mg/dL (< 150)
[2022-10-01] MEDS ORDERED: MELATONIN 5 MG TAB PO SCH (22:00)
[2022-10-02 04:52] VITALS: BP_SYST 126; BP_SYST 137; BP_DIAS 62; BP_DIAS 63
[2022-10-02 05:54] LABS: Basophils # (auto) 0.1 10 ^3/uL (0-0.2)
[2022-10-02 05:55] LABS: Basophils % (auto) 0.7 % (0.0-2.0); Eosinophils # (auto) 0.6 10 ^3/uL (0-0.8); Eosinophils % (auto) 5.6 % (0.0-7.0); Hematocrit 30.8 % (36.0-46.0); Hemoglobin 9.9 g/dL (12.2-16.2); Lymphocytes # (auto) 1.4 10 ^3/uL (0.4-5.4); Lymphocytes % (auto) 12.5 % (10.0-50.0); Mean Corpuscular Hemoglobin 23.9 pg (28.0-32.0); Mean Corpuscular Hgb Conc. 32.1 g/dL (32.0-36.0); Mean Corpuscular Volume 74.5 fL (80.0-100.0); Monocytes # (auto) 0.8 10 ^3/uL (0-1.3); Monocytes % (auto) 6.9 % (0.0-12.0); Neutrophils # (auto) 8.4 10 ^3/uL (1.6-8.6); Neutrophils % (auto) 74.3 % (37.0-80.0); Red Blood Cells 4.14 10^6/uL (4.0-5.20); White Blood Cell 11.3 10^3/uL (4.4-10.8)
[2022-10-02 06:03] LABS: BUN/Creatinine Ratio 24.8 (10.0-20.0); Calcium 9.9 mg/dL (8.5-10.1)
[2022-10-02 06:13] LABS: Red Cell Distribution Width 24.5 % (11.8-14.3)
[2022-10-02] MEDS: SODIUM CHLORIDE 0.9% 1,000 ML IV SCH ×2 (06:30→16:30)
[2022-10-02 09:00] VITALS: BP 122/75
[2022-10-02] MEDS: MICAFUNGIN SODIUM 100 MG in SODIUM CHL 0.9% 100 ML IV SCH (09:43)
[2022-10-02] MEDS: MEROPENEM 1GM IVPB 100 ML IV SCH (09:43)
[2022-10-02] MEDS: amLODIPine BESYLATE 5 MG TAB PO SCH (09:44)
[2022-10-02] MEDS ORDERED: LACTULOSE 20Gm/30ML SOLN PO PRN (10:15)
[2022-10-02 13:00] VITALS: BP 126/49
[2022-10-02] MEDS ORDERED: FLUC200T50 PO (13:57)
[2022-10-02] MEDS ORDERED: POSA100T4 PO (14:33)
[2022-10-02 16:38] VITALS: BP 126/49
[2022-10-02 17:00] VITALS: BP 120/62
[2022-10-02] MEDS ORDERED: DOXYCYCLINE 100 MG TAB/CAP PO SCH (22:00)
[2022-10-03] MEDS ORDERED: CEFTRIAXONE SODIUM 2 GM in D5W 5% 100 ML IV SCH (10:00)
== END 2022-10-02 18:00 | disposition home or self-care (01) | DRG 282 ==
LOC: ER 20:48 → OVERFLOW 09-29 02:49 → CENTRAL 09-29 15:16
PROVIDERS: ADMIT Nurse Practitioner; ATTEND Internal Medicine Pulmonary Disease
DX: K85.10 Biliary acute pancreatitis without necrosis or infection (principal); N17.0 Acute kidney failure with tubular necrosis; K80.12 Calculus of gallbladder with acute and chronic cholecystitis without obstruction; E87.20 Acidosis, unspecified; D63.8 Anemia in other chronic diseases classified elsewhere; K76.0 Fatty (change of) liver, not elsewhere classified; N18.4 Chronic kidney disease, stage 4 (severe); E86.0 Dehydration; D72.829 Elevated white blood cell count, unspecified; M06.9 Rheumatoid arthritis, unspecified; I12.9 Hypertensive chronic kidney disease with stage 1 through stage 4 chronic kidney disease, or unspecified chronic kidney disease; K21.9 Gastro-esophageal reflux disease without esophagitis; Z68.39 Body mass index [BMI] 39.0-39.9, adult; Z88.0 Allergy status to penicillin
CPT/HCPCS: 36415; 71045; 74018; 74176; 74181; 76705; 78226; 80048; 80053; 80061; 80074; 81001; 82010; 83605; 83690; 83735; 83880; 83930; 84075; 84484; 85025; 85730; 86606; 86635; 86703; 87040; 87081; 96365; 96366; 96367; 96368; 96375; 96376; G0378; J0696; J2185; J2248; J2405; J2543; J3490

== ENCOUNTER 2022-10-27 11:24 | Inpatient (IN) | payer MEDICAID ==
[~2022-10-27] VITALS: Ht 167.6 cm; Wt 42.5 kg
[~2022-10-27 11:24] MED LIST changes: +FLUC200T50 PO; -ITRA100C2 PO; +OMEP20TA PO; +POSA100T4 PO
[2022-10-27 12:33] LABS: Basophils # (auto) 0.2 10 ^3/uL (0-0.2); Eosinophils # (auto) 0.1 10 ^3/uL (0-0.8); Hemoglobin 12.5 g/dL (12.2-16.2); Mean Corpuscular Hemoglobin 24.2 pg (28.0-32.0); Neutrophils # (auto) 3.3 10 ^3/uL (1.6-8.6)
[2022-10-27 12:35] LABS: Basophils % (auto) 2.9 % (0.0-2.0); Eosinophils % (auto) 1.8 % (0.0-7.0); Hematocrit 39.3 % (36.0-46.0); Lymphocytes # (auto) 2.3 10 ^3/uL (0.4-5.4); Lymphocytes % (auto) 35.9 % (10.0-50.0); Mean Corpuscular Hgb Conc. 31.8 g/dL (32.0-36.0); Monocytes # (auto) 0.5 10 ^3/uL (0-1.3); Monocytes % (auto) 7.4 % (0.0-12.0); Nucleated Red Blood Cells % 0.2 %; Red Blood Cells 5.17 10^6/uL (4.0-5.20); White Blood Cell 6.3 10^3/uL (4.4-10.8)
[2022-10-27 12:41] LABS: Albumin 3.1 g/dL (3.4-5.0); Calcium 12.7 mg/dL (8.5-10.1); Potassium 4.2 mmol/L (3.5-5.1)
[2022-10-27 12:42] LABS: Red Cell Distribution Width 22.2 % (11.8-14.3)
[2022-10-27 12:44] LABS: BUN/Creatinine Ratio 22.9 (10.0-20.0); Bilirubin, Total 0.6 mg/dL (0.2-1.0); Total Protein 8.1 g/dL (6.4-8.2)
[2022-10-27 12:45] LABS: INR 1.09 (0.9-1.15); Partial Thromboplastin Time 21.6 SEC (24.5-34.5); Prothrombin Time 11.4 sec (9.3-11.8)
[2022-10-27] MEDS ORDERED: SODIUM CHLORIDE 0.9% 1,500 ML IV ONE (16:00)
[2022-10-27] MEDS ORDERED: DOCUSATE SOD 100 MG CAP PO PRN (16:00)
[2022-10-27 16:03] VITALS: PULSE 74; RESP 18; O2SAT 100
[2022-10-27 16:08] LABS: Amylase 84 U/L (25-115); Lipase 1216 U/L (73-393)
[2022-10-27] MEDS: ONDANSETRON HCL 4 MG/2 ML VIAL IV PRN (16:17)
[2022-10-27] MEDS ORDERED: HYDROmorphone HCL 2 MG/ML VL/or syr IV PRN (16:45)
[2022-10-27] MEDS ORDERED: ACETAMINOPHEN 500 MG TAB PO PRN (16:45)
[2022-10-27] MEDS: SODIUM CHLORIDE 0.9% 1,000 ML IV SCH (18:23)
[2022-10-27 22:14] VITALS: PULSE 55; RESP 30; O2SAT 97
[2022-10-27] MEDS: MELATONIN 5 MG TAB PO SCH (23:09)
[2022-10-28] MEDS: SODIUM CHLORIDE 0.9% 1,000 ML IV SCH ×2 (03:57→04:57)
[2022-10-28 06:22] LABS: Basophils # (auto) 0.1 10 ^3/uL (0-0.2); Eosinophils # (auto) 0.1 10 ^3/uL (0-0.8); Hemoglobin 10.9 g/dL (12.2-16.2); Mean Corpuscular Volume 76.1 fL (80.0-100.0); Monocytes # (auto) 0.5 10 ^3/uL (0-1.3)
[2022-10-28 06:26] LABS: Basophils % (auto) 1.5 % (0.0-2.0); Eosinophils % (auto) 1.6 % (0.0-7.0); Hematocrit 34.5 % (36.0-46.0); Lymphocytes # (auto) 1.3 10 ^3/uL (0.4-5.4); Lymphocytes % (auto) 25.7 % (10.0-50.0); Mean Corpuscular Hgb Conc. 31.5 g/dL (32.0-36.0); Monocytes % (auto) 9.7 % (0.0-12.0); Neutrophils # (auto) 3.2 10 ^3/uL (1.6-8.6); Neutrophils % (auto) 61.5 % (37.0-80.0); Nucleated Red Blood Cells % 0.2 %; Red Blood Cells 4.54 10^6/uL (4.0-5.20); White Blood Cell 5.2 10^3/uL (4.4-10.8)
[2022-10-28 06:35] LABS: Red Cell Distribution Width 22.2 % (11.8-14.3)
[2022-10-28 06:49] LABS: Albumin 2.5 g/dL (3.4-5.0); BUN/Creatinine Ratio 25.2 (10.0-20.0); Bilirubin, Total 0.3 mg/dL (0.2-1.0); Calcium 11.5 mg/dL (8.5-10.1); Total Protein 6.9 g/dL (6.4-8.2)
[2022-10-28] MEDS ORDERED: LACTULOSE 20Gm/30ML SOLN PO SCH (10:00)
[2022-10-28] MEDS: PANTOPRAZOLE 40 MG/10 ML VIAL INJ IV SCH (10:10)
[2022-10-28] MEDS: SOD CHL 0.45% 1,000 ML IV SCH ×2 (11:38→21:00)
[2022-10-28] MEDS: LACTULOSE 20Gm/30ML SOLN PO SCH ×2 (11:38→22:00)
[2022-10-28] MEDS: ONDANSETRON HCL 4 MG/2 ML VIAL IV PRN (11:58)
[2022-10-28 13:28] LABS: Urine Bacteria NONE SEEN /hpf (None Seen); Urine Blood Negative /uL (Negative); Urine Clarity Clear (Clear); Urine Protein, UAD TRACE (Negative); Urine Specific Gravity 1.008 (1.001-1.035); Urine Urobilinogen Normal (Negative); Urine WBC 2 /hpf (0 - 5)
[2022-10-28 13:30] LABS: Urine Color Straw (Yellow)
[2022-10-28] MEDS ORDERED: BISACODYL 10 MG RECT SUPP PR ONE (14:00)
[2022-10-28] MEDS ORDERED: BISACODYL 10 MG RECT SUPP PR PRN (14:00)
[2022-10-28] MEDS: MICAFUNGIN SODIUM 100 MG in SODIUM CHL 0.9% 100 ML IV SCH (14:35)
[2022-10-28] MEDS: METOCLOPRAMIDE HCL 5MG/ml INJ 2ml VIAL IV SCH ×2 (14:41→22:52)
[2022-10-28 22:26] VITALS: BP 164/80; PULSE 98; RESP 18; TEMP 98.3; O2SAT 99
[2022-10-28] MEDS: MELATONIN 5 MG TAB PO SCH (22:51)
[2022-10-29 05:00] VITALS: BP 152/75; PULSE 91; RESP 14; TEMP 97.7; O2SAT 97
[2022-10-29 06:07] LABS: Albumin 2.4 g/dL (3.4-5.0); Calcium 10.9 mg/dL (8.5-10.1); Potassium 3.3 mmol/L (3.5-5.1)
[2022-10-29 06:10] LABS: Bilirubin, Total 0.4 mg/dL (0.2-1.0)
[2022-10-29 06:15] LABS: Basophils # (auto) 0.1 10 ^3/uL (0-0.2); Eosinophils # (auto) 0.1 10 ^3/uL (0-0.8); Hematocrit 31.9 % (36.0-46.0); Mean Corpuscular Hemoglobin 24.2 pg (28.0-32.0); Mean Corpuscular Volume 75.3 fL (80.0-100.0); Monocytes # (auto) 0.6 10 ^3/uL (0-1.3); Neutrophils # (auto) 4.3 10 ^3/uL (1.6-8.6); Nucleated Red Blood Cells % 0.1 %; White Blood Cell 6.7 10^3/uL (4.4-10.8)
[2022-10-29 06:17] LABS: Basophils % (auto) 1.7 % (0.0-2.0); Eosinophils % (auto) 2.2 % (0.0-7.0); Hemoglobin 10.3 g/dL (12.2-16.2); Lymphocytes # (auto) 1.5 10 ^3/uL (0.4-5.4); Lymphocytes % (auto) 22.4 % (10.0-50.0); Mean Corpuscular Hgb Conc. 32.2 g/dL (32.0-36.0); Monocytes % (auto) 8.9 % (0.0-12.0); Neutrophils % (auto) 64.8 % (37.0-80.0); Red Blood Cells 4.24 10^6/uL (4.0-5.20); Red Cell Distribution Width 21.8 % (11.8-14.3)
[2022-10-29] MEDS: SOD CHL 0.45% 1,000 ML IV SCH (06:21)
[2022-10-29] MEDS: METOCLOPRAMIDE HCL 5MG/ml INJ 2ml VIAL IV SCH ×3 (06:21→21:41)
[2022-10-29 06:38] LABS: BUN/Creatinine Ratio 21.2 (10.0-20.0)
[2022-10-29 08:00] VITALS: BP 135/69; PULSE 90; RESP 17; TEMP 98.2; O2SAT 93
[2022-10-29] MEDS ORDERED: CLINIMIX PER PHARMACY 0 ML IV SCH (09:15)
[2022-10-29 10:02] LABS: Magnesium 1.9 mg/dL (1.6-2.6); Phosphorus 2.1 mg/dL (2.5-4.90)
[2022-10-29] MEDS: LACTULOSE 20Gm/30ML SOLN PO SCH ×2 (10:03→21:46)
[2022-10-29] MEDS: PANTOPRAZOLE 40 MG/10 ML VIAL INJ IV SCH (10:03)
[2022-10-29] MEDS: PANCREATIC ENZYMES 4200 UNIT CAP PO SCH ×3 (10:03→18:28)
[2022-10-29] MEDS: MICAFUNGIN SODIUM 100 MG in SODIUM CHL 0.9% 100 ML IV SCH (10:04)
[2022-10-29] MEDS ORDERED: SODIUM CHL 0.9% IV ONE (11:15)
[2022-10-29] MEDS ORDERED: POTASSIUM PHOSPHATE IV ONE (11:15)
[2022-10-29] MEDS ORDERED: POTASSIUM PHOSPHATE 44 MEQ in D5W 5% 250 ML IV ONE (13:15)
[2022-10-29] MEDS: LEVOTHYROXINE SODIUM 100 MCG/5 ML INJ IV SCH (14:36)
[2022-10-29] MEDS: SODIUM BICARBONATE 50ML VIAL 50 ML in SOD CHL 0.45% 1,000 ML IV SCH ×2 (14:47→23:41)
[2022-10-29 16:37] VITALS: BP 144/75; PULSE 97; RESP 20; TEMP 98.2; O2SAT 96
[2022-10-29 18:49] LABS: Protein, Urine 229.7 mg/dL (0.0-11.9)
[2022-10-29 19:11] LABS: Urine Protein/Creatinine Ratio 20.88
[2022-10-29 19:58] LABS: Erythrocyte Sedimentation Rate 52 mm/hr (0-20)
[2022-10-29 20:00] VITALS: PULSE 96; RESP 16
[2022-10-29] MEDS ORDERED: AMINO ACID INFUSION IN D10W 1,000 ML IV NR (20:00)
[2022-10-29] MEDS: MELATONIN 5 MG TAB PO SCH (21:43)
[2022-10-29 22:16] VITALS: BP 155/79; PULSE 96; RESP 16; TEMP 98.1; O2SAT 96
[2022-10-29] MEDS: VORICONAZOLE IV SCH (22:45)
[2022-10-29] MEDS: D5W 5% IV SCH (22:45)
[2022-10-29] MEDS: ACCU-CHEK COMFORT CURVE STRIP VI SCH (23:28)
[2022-10-29] MEDS: InsuLIN REG 1unit/0.01ml Soln (100units/ml) SC SCH (23:40)
[2022-10-30] MEDS ORDERED: DEXTROSE (50%) 50ML SYRG IV SCH
[2022-10-30] MEDS: ACETAMINOPHEN/CODEINE#3 (300/30mg) TAB PO PRN (01:51)
[2022-10-30 05:30] VITALS: BP 141/73; PULSE 80; RESP 16; TEMP 97.6; O2SAT 96
[2022-10-30] MEDS: METOCLOPRAMIDE HCL 5MG/ml INJ 2ml VIAL IV SCH ×3 (05:35→22:31)
[2022-10-30] MEDS: ACCU-CHEK COMFORT CURVE STRIP VI SCH ×4 (05:42→23:19)
[2022-10-30] MEDS: InsuLIN REG 1unit/0.01ml Soln (100units/ml) SC SCH ×4 (05:42→23:19)
[2022-10-30 07:38] LABS: Basophils # (auto) 0.1 10 ^3/uL (0-0.2); Hemoglobin 10.4 g/dL (12.2-16.2); Lymphocytes # (auto) 1.7 10 ^3/uL (0.4-5.4); Monocytes # (auto) 0.5 10 ^3/uL (0-1.3); Monocytes % (auto) 6.8 % (0.0-12.0)
[2022-10-30 07:40] LABS: Eosinophils # (auto) 0.1 10 ^3/uL (0-0.8); Eosinophils % (auto) 2.2 % (0.0-7.0); Hematocrit 32.9 % (36.0-46.0); Lymphocytes % (auto) 25.5 % (10.0-50.0); Mean Corpuscular Hemoglobin 24.1 pg (28.0-32.0); Mean Corpuscular Hgb Conc. 31.7 g/dL (32.0-36.0); Mean Corpuscular Volume 76.1 fL (80.0-100.0); Neutrophils # (auto) 4.3 10 ^3/uL (1.6-8.6); Neutrophils % (auto) 64.5 % (37.0-80.0); Nucleated Red Blood Cells % 0.2 %; Red Blood Cells 4.32 10^6/uL (4.0-5.20); White Blood Cell 6.7 10^3/uL (4.4-10.8)
[2022-10-30 07:50] LABS: Calcium 10.3 mg/dL (8.5-10.1); Potassium 3.2 mmol/L (3.5-5.1)
[2022-10-30 07:53] LABS: Red Cell Distribution Width 22.1 % (11.8-14.3)
[2022-10-30 07:58] LABS: Albumin 2.3 g/dL (3.4-5.0); Bilirubin, Total 0.5 mg/dL (0.2-1.0); Magnesium 1.9 mg/dL (1.6-2.6); Phosphorus 3.2 mg/dL (2.5-4.90); Total Protein 6.8 g/dL (6.4-8.2)
[2022-10-30 08:03] LABS: INR 1.18 (0.9-1.15); Partial Thromboplastin Time 30.2 SEC (24.5-34.5); Prothrombin Time 12.3 sec (9.3-11.8)
[2022-10-30 09:00] VITALS: BP 134/68; PULSE 80; RESP 16; TEMP 98; O2SAT 99
[2022-10-30] MEDS: LACTULOSE 20Gm/30ML SOLN PO SCH ×2 (09:31→22:26)
[2022-10-30] MEDS: PANTOPRAZOLE 40 MG/10 ML VIAL INJ IV SCH (09:31)
[2022-10-30] MEDS: LEVOTHYROXINE SODIUM 100 MCG/5 ML INJ IV SCH (09:32)
[2022-10-30] MEDS: ONDANSETRON HCL 4 MG/2 ML VIAL IV PRN (09:32)
[2022-10-30] MEDS: PANCREATIC ENZYMES 4200 UNIT CAP PO SCH ×3 (09:32→18:16)
[2022-10-30] MEDS: SODIUM BICARBONATE 50ML VIAL 50 ML in SOD CHL 0.45% 1,000 ML IV SCH ×2 (09:33→20:23)
[2022-10-30] MEDS: D5W 5% IV SCH (10:45)
[2022-10-30] MEDS: VORICONAZOLE IV SCH (10:45)
[2022-10-30] MEDS: FLUCONAZOLE 200MG/100ML 100 ML IV SCH (13:15)
[2022-10-30] MEDS ORDERED: TPN PER PHARMACY 0 ML IV SCH (14:15)
[2022-10-30] MEDS: POTASSIUM CHL 20MEQ/100ML 100 ML IV SCH ×2 (16:30→18:19)
[2022-10-30 17:00] VITALS: BP 121/70; PULSE 103; RESP 17; TEMP 97.8; O2SAT 98
[2022-10-30 20:00] VITALS: PULSE 110; RESP 16; O2SAT 100
[2022-10-30] MEDS ORDERED: AMINO ACID INFUSION IN D10W 1,000 ML IV NR (20:00)
[2022-10-30 20:01] VITALS: RESP 18; O2SAT 98
[2022-10-30 22:00] VITALS: BP 143/75; PULSE 110; RESP 16; TEMP 98.6; O2SAT 100
[2022-10-30] MEDS ORDERED: D5W 5% IV SCH (23:00)
[2022-10-30] MEDS ORDERED: VORICONAZOLE IV SCH (23:00)
[2022-10-30] MEDS: MELATONIN 5 MG TAB PO SCH (23:09)
[2022-10-31] VITALS (8 sets, daily range): BP systolic 120–128; BP diastolic 53–68; PULSE 92–103; RESP 16–20; TEMP 97.4–98.1; O2SAT 93–100
[2022-10-31] MEDS: SODIUM BICARBONATE 50ML VIAL 50 ML in SOD CHL 0.45% 1,000 ML IV SCH ×3 (05:05→20:26)
[2022-10-31] MEDS: METOCLOPRAMIDE HCL 5MG/ml INJ 2ml VIAL IV SCH ×3 (05:07→21:56)
[2022-10-31] MEDS: InsuLIN REG 1unit/0.01ml Soln (100units/ml) SC SCH ×3 (05:13→17:56)
[2022-10-31] MEDS: ACCU-CHEK COMFORT CURVE STRIP VI SCH ×3 (05:20→17:52)
[2022-10-31 06:52] LABS: Albumin 2.3 g/dL (3.4-5.0); BUN/Creatinine Ratio 22.4 (10.0-20.0); Calcium 10.2 mg/dL (8.5-10.1); Magnesium 1.4 mg/dL (1.6-2.6); Potassium 4.4 mmol/L (3.5-5.1)
[2022-10-31 06:55] LABS: Bilirubin, Total 0.5 mg/dL (0.2-1.0); Phosphorus 1.6 mg/dL (2.5-4.90); Total Protein 6.9 g/dL (6.4-8.2)
[2022-10-31 08:06] LABS: Immunoglobulin A 387 mg/dL (64-422); Immunoglobulin G, Serum 1861 mg/dL (586-1602); Immunoglobulin M 93 mg/dL (26-217)
[2022-10-31] MEDS: LEVOTHYROXINE SODIUM 100 MCG/5 ML INJ IV SCH (09:19)
[2022-10-31] MEDS: LACTULOSE 20Gm/30ML SOLN PO SCH ×2 (09:19→22:00)
[2022-10-31] MEDS: FLUCONAZOLE 200MG/100ML 100 ML IV SCH ×2 (09:19→13:11)
[2022-10-31] MEDS: PANCREATIC ENZYMES 4200 UNIT CAP PO SCH ×3 (09:19→18:17)
[2022-10-31] MEDS: PANTOPRAZOLE 40 MG/10 ML VIAL INJ IV SCH (09:19)
[2022-10-31] MEDS: MAGNESIUM SULFATE 1GM/100ML 100 ML IV SCH ×2 (09:24→13:13)
[2022-10-31] MEDS ORDERED: LIDOCAINE 1% (LOCAL ANESTH.) PF 5ml SDV ID ONE (10:45)
[2022-10-31] MEDS ORDERED: SODIUM PHOSPHATES 40 MEQ in D5W 5% 250 ML IV ONE (11:15)
[2022-10-31] MEDS: ALBUTEROL SULF 2.5 MG/0.5ML(0.5%) NEB SOLN NEB SCH ×2 (12:00→19:12)
[2022-10-31] MEDS: IPRATROPIUM BROM 0.5 MG/2.5ML INH SOL NEB SCH ×2 (12:00→19:12)
[2022-10-31] MEDS ORDERED: TPN PER PHARMACY IV NR ×9 (20:00)
[2022-10-31] MEDS: SODIUM CHLOR 0.9% PF (SALINE LOCK) 10ML VIAL/SYR IV SCH (22:03)
[2022-10-31] MEDS: MELATONIN 5 MG TAB PO SCH (22:04)
[2022-11-01] VITALS (13 sets, daily range): BP systolic 114–149; BP diastolic 50–65; PULSE 87–107; RESP 16–20; TEMP 97.6–99; O2SAT 95–100
[2022-11-01] MEDS: ACCU-CHEK COMFORT CURVE STRIP VI SCH ×4 (00:03→17:45)
[2022-11-01] MEDS: InsuLIN REG 1unit/0.01ml Soln (100units/ml) SC SCH ×4 (00:05→17:47)
[2022-11-01] MEDS: METOCLOPRAMIDE HCL 5MG/ml INJ 2ml VIAL IV SCH ×2 (06:04→14:23)
[2022-11-01 06:48] LABS: Potassium 3.3 mmol/L (3.5-5.1)
[2022-11-01 07:01] LABS: Albumin 1.9 g/dL (3.4-5.0); BUN/Creatinine Ratio 26.6 (10.0-20.0); Calcium 9.1 mg/dL (8.5-10.1); Magnesium 2.1 mg/dL (1.6-2.6); Phosphorus 4.3 mg/dL (2.5-4.90)
[2022-11-01] MEDS: IPRATROPIUM BROM 0.5 MG/2.5ML INH SOL NEB SCH ×3 (07:09→19:09)
[2022-11-01] MEDS: ALBUTEROL SULF 2.5 MG/0.5ML(0.5%) NEB SOLN NEB SCH ×3 (07:09→19:09)
[2022-11-01] MEDS: PANCREATIC ENZYMES 4200 UNIT CAP PO SCH ×3 (09:16→18:00)
[2022-11-01] MEDS ORDERED: POTASSIUM CHL 20MEQ/100ML 100 ML IV ONE (09:30)
[2022-11-01] MEDS: LACTULOSE 20Gm/30ML SOLN PO SCH ×2 (09:38→22:00)
[2022-11-01] MEDS: SODIUM CHLOR 0.9% PF (SALINE LOCK) 10ML VIAL/SYR IV SCH (10:11)
[2022-11-01] MEDS: LEVOTHYROXINE SODIUM 100 MCG/5 ML INJ IV SCH (11:00)
[2022-11-01] MEDS: PANTOPRAZOLE 40 MG/10 ML VIAL INJ IV SCH (11:00)
[2022-11-01] MEDS: FLUCONAZOLE 200MG/100ML 100 ML IV SCH ×2 (11:01→12:07)
[2022-11-01] MEDS ORDERED: ENOXAPARIN SOD 100 MG/1 ML SYRINGE SC SCH (11:30)
[2022-11-01] MEDS: ACETAMINOPHEN/CODEINE#3 (300/30mg) TAB PO PRN (13:00)
[2022-11-01] MEDS ORDERED: TPN PER PHARMACY IV NR ×9 (20:00)
[2022-11-02] VITALS (11 sets, daily range): BP systolic 139–158; BP diastolic 53–78; PULSE 70–108; RESP 16–20; TEMP 97.4–98; O2SAT 95–100
[2022-11-02] MEDS: METOCLOPRAMIDE HCL 5MG/ml INJ 2ml VIAL IV SCH ×4 (00:08→22:14)
[2022-11-02] MEDS: SODIUM CHLOR 0.9% PF (SALINE LOCK) 10ML VIAL/SYR IV SCH ×3 (00:09→22:14)
[2022-11-02] MEDS: MELATONIN 5 MG TAB PO SCH ×2 (00:10→22:13)
[2022-11-02] MEDS: InsuLIN REG 1unit/0.01ml Soln (100units/ml) SC SCH ×5 (00:11→23:47)
[2022-11-02] MEDS: ACCU-CHEK COMFORT CURVE STRIP VI SCH ×5 (00:12→23:47)
[2022-11-02 07:59] LABS: Albumin 1.8 g/dL (3.4-5.0); Calcium 9.3 mg/dL (8.5-10.1); Magnesium 2.4 mg/dL (1.6-2.6); Potassium 3.4 mmol/L (3.5-5.1)
[2022-11-02] MEDS: PANCREATIC ENZYMES 4200 UNIT CAP PO SCH ×3 (08:00→18:11)
[2022-11-02 08:02] LABS: BUN/Creatinine Ratio 29.5 (10.0-20.0); Bilirubin, Total 0.3 mg/dL (0.2-1.0); Phosphorus 2.1 mg/dL (2.5-4.90); Total Protein 5.7 g/dL (6.4-8.2)
[2022-11-02] MEDS ORDERED: POTASSIUM PHOSP 22MEQ(15MMOLE) in NS 100 ML IV ONE (09:30)
[2022-11-02] MEDS: IPRATROPIUM BROM 0.5 MG/2.5ML INH SOL NEB SCH ×3 (09:36→19:05)
[2022-11-02] MEDS: ALBUTEROL SULF 2.5 MG/0.5ML(0.5%) NEB SOLN NEB SCH ×3 (09:36→19:05)
[2022-11-02] MEDS: LACTULOSE 20Gm/30ML SOLN PO SCH ×2 (09:44→22:13)
[2022-11-02] MEDS: LEVOTHYROXINE SODIUM 100 MCG/5 ML INJ IV SCH (09:54)
[2022-11-02] MEDS: PANTOPRAZOLE 40 MG/10 ML VIAL INJ IV SCH (09:54)
[2022-11-02] MEDS: FLUCONAZOLE 200MG/100ML 100 ML IV SCH ×2 (09:55→11:00)
[2022-11-02] MEDS ORDERED: ENOXAPARIN SOD 40 MG/0.4 ML SYRINGE SC SCH (10:00)
[2022-11-02] MEDS ORDERED: fentaNYL CITRATE 100 MCG/2 ML VL IV ONE (13:45)
[2022-11-02] MEDS ORDERED: MIDAZOLAM HCL 2MG/2ML 2ml VIAL (1mg/ml) IV ONE (13:45)
[2022-11-02] MEDS ORDERED: TPN PER PHARMACY IV NR ×22 (20:00)
[2022-11-02] MEDS: ARTIFICIAL TEARS 15ml EACHEYE PRN (20:07)
[2022-11-02] MEDS: ENOXAPARIN SOD 40 MG/0.4 ML SYRINGE SC SCH (22:14)
[2022-11-03] VITALS (13 sets, daily range): BP systolic 106–142; BP diastolic 52–77; PULSE 60–110; RESP 16–20; TEMP 97.7–98.5; O2SAT 93–100
[2022-11-03] MEDS: ACETAMINOPHEN/CODEINE#3 (300/30mg) TAB PO PRN (00:55)
[2022-11-03] MEDS: ARTIFICIAL TEARS 15ml EACHEYE PRN ×2 (05:34→12:42)
[2022-11-03] MEDS: ACCU-CHEK COMFORT CURVE STRIP VI SCH ×4 (05:35→23:45)
[2022-11-03] MEDS: METOCLOPRAMIDE HCL 5MG/ml INJ 2ml VIAL IV SCH ×3 (05:35→23:44)
[2022-11-03] MEDS: InsuLIN REG 1unit/0.01ml Soln (100units/ml) SC SCH ×4 (05:46→23:54)
[2022-11-03 06:41] LABS: Albumin 1.7 g/dL (3.4-5.0); Calcium 9.8 mg/dL (8.5-10.1); Magnesium 2.1 mg/dL (1.6-2.6); Potassium 3.6 mmol/L (3.5-5.1)
[2022-11-03 06:46] LABS: BUN/Creatinine Ratio 28.9 (10.0-20.0); Bilirubin, Total 0.3 mg/dL (0.2-1.0); Phosphorus 2.2 mg/dL (2.5-4.90); Total Protein 5.7 g/dL (6.4-8.2)
[2022-11-03] MEDS: IPRATROPIUM BROM 0.5 MG/2.5ML INH SOL NEB SCH ×3 (06:58→18:58)
[2022-11-03] MEDS: ALBUTEROL SULF 2.5 MG/0.5ML(0.5%) NEB SOLN NEB SCH ×3 (06:58→18:58)
[2022-11-03 08:06] LABS: Albumin 2.7 g/dL (2.9-4.4); Alpha-1-Globulin 0.3 g/dL (0.0-0.4); Alpha-2-Globulin 0.7 g/dL (0.4-1.0); Gamma Globulin 1.8 g/dL (0.4-1.8); Globulin Total 3.7 g/dL (2.2-3.9); Protein Total Serum 6.4 g/dL (6.0-8.5)
[2022-11-03] MEDS: PANTOPRAZOLE 40 MG/10 ML VIAL INJ IV SCH (08:24)
[2022-11-03] MEDS: PANCREATIC ENZYMES 4200 UNIT CAP PO SCH ×3 (08:24→18:00)
[2022-11-03] MEDS: SODIUM CHLOR 0.9% PF (SALINE LOCK) 10ML VIAL/SYR IV SCH ×2 (08:25→23:44)
[2022-11-03] MEDS: LACTULOSE 20Gm/30ML SOLN PO SCH ×3 (08:25→23:45)
[2022-11-03] MEDS: LEVOTHYROXINE SODIUM 100 MCG/5 ML INJ IV SCH (08:25)
[2022-11-03] MEDS: ONDANSETRON HCL 4 MG/2 ML VIAL IV PRN (09:16)
[2022-11-03] MEDS ORDERED: SODIUM CHLORIDE 0.9% 1,000 ML IV ONE (09:45)
[2022-11-03] MEDS: FLUCONAZOLE 200MG/100ML 100 ML IV SCH ×2 (10:03→11:27)
[2022-11-03] MEDS ORDERED: TPN PER PHARMACY IV NR ×10 (20:00)
[2022-11-03] MEDS: MELATONIN 5 MG TAB PO SCH (23:45)
[2022-11-03] MEDS: ENOXAPARIN SOD 40 MG/0.4 ML SYRINGE SC SCH (23:45)
[2022-11-04] VITALS (10 sets, daily range): BP systolic 135–148; BP diastolic 57–75; PULSE 100–113; RESP 16–22; TEMP 97.8–99.6; O2SAT 93–100
[2022-11-04] MEDS: METOCLOPRAMIDE HCL 5MG/ml INJ 2ml VIAL IV SCH ×3 (06:27→21:28)
[2022-11-04] MEDS: ACCU-CHEK COMFORT CURVE STRIP VI SCH ×3 (06:28→17:27)
[2022-11-04] MEDS: InsuLIN REG 1unit/0.01ml Soln (100units/ml) SC SCH ×3 (06:41→17:27)
[2022-11-04 07:04] LABS: Eosinophils # (auto) 0.4 10 ^3/uL (0-0.8); Lymphocytes # (auto) 1.5 10 ^3/uL (0.4-5.4); Monocytes # (auto) 0.9 10 ^3/uL (0-1.3); Red Blood Cells 3.25 10^6/uL (4.0-5.20); White Blood Cell 8.1 10^3/uL (4.4-10.8)
[2022-11-04 07:06] LABS: Basophils # (auto) 0.1 10 ^3/uL (0-0.2); Basophils % (auto) 1.3 % (0.0-2.0); Eosinophils % (auto) 5.4 % (0.0-7.0); Hematocrit 25.8 % (36.0-46.0); Hemoglobin 8.2 g/dL (12.2-16.2); Lymphocytes % (auto) 18.4 % (10.0-50.0); Mean Corpuscular Hemoglobin 25.2 pg (28.0-32.0); Mean Corpuscular Hgb Conc. 31.8 g/dL (32.0-36.0); Mean Corpuscular Volume 79.4 fL (80.0-100.0); Monocytes % (auto) 11.5 % (0.0-12.0); Neutrophils # (auto) 5.2 10 ^3/uL (1.6-8.6); Neutrophils % (auto) 63.4 % (37.0-80.0); Nucleated Red Blood Cells % 0.1 %; Red Cell Distribution Width 21.8 % (11.8-14.3)
[2022-11-04] MEDS: ALBUTEROL SULF 2.5 MG/0.5ML(0.5%) NEB SOLN NEB SCH ×3 (07:12→18:12)
[2022-11-04] MEDS: IPRATROPIUM BROM 0.5 MG/2.5ML INH SOL NEB SCH ×3 (07:12→18:12)
[2022-11-04 08:03] LABS: Potassium 4.6 mmol/L (3.5-5.1)
[2022-11-04 08:09] LABS: Albumin 1.7 g/dL (3.4-5.0); BUN/Creatinine Ratio 28.6 (10.0-20.0); Calcium 9.4 mg/dL (8.5-10.1); Magnesium 2.7 mg/dL (1.6-2.6); Phosphorus 2.1 mg/dL (2.5-4.90)
[2022-11-04] MEDS: LACTULOSE 20Gm/30ML SOLN PO SCH ×2 (09:18→21:28)
[2022-11-04] MEDS: LEVOTHYROXINE SODIUM 100 MCG/5 ML INJ IV SCH (09:18)
[2022-11-04] MEDS: FLUCONAZOLE 200MG/100ML 100 ML IV SCH ×2 (09:18→11:50)
[2022-11-04] MEDS: PANTOPRAZOLE 40 MG/10 ML VIAL INJ IV SCH (09:18)
[2022-11-04] MEDS: SODIUM CHLOR 0.9% PF (SALINE LOCK) 10ML VIAL/SYR IV SCH ×2 (09:19→21:28)
[2022-11-04] MEDS: PANCREATIC ENZYMES 4200 UNIT CAP PO SCH ×3 (09:20→17:26)
[2022-11-04] MEDS: ONDANSETRON HCL 4 MG/2 ML VIAL IV PRN (10:22)
[2022-11-04] MEDS ORDERED: SODIUM PHOSP 20MEQ(15MMOL) IN NS 100 ML IV ONE (11:15)
[2022-11-04] MEDS: ARTIFICIAL TEARS 15ml EACHEYE PRN (11:55)
[2022-11-04] MEDS ORDERED: LORazepam 2MG/ML-1ML VIAL IV PRN (13:30)
[2022-11-04] MEDS ORDERED: ACETAMINOPHEN 500 MG TAB PO PRN (13:30)
[2022-11-04] MEDS ORDERED: TPN PER PHARMACY IV NR ×9 (20:00)
[2022-11-04] MEDS: MELATONIN 5 MG TAB PO SCH (21:28)
[2022-11-04] MEDS: ENOXAPARIN SOD 40 MG/0.4 ML SYRINGE SC SCH (21:29)
[2022-11-05] VITALS (7 sets, daily range): BP systolic 124–136; BP diastolic 66–71; PULSE 99–115; RESP 17–20; TEMP 98.7–98.8; O2SAT 96–100
[2022-11-05] MEDS: ACCU-CHEK COMFORT CURVE STRIP VI SCH ×3 (00:04→11:50)
[2022-11-05] MEDS: InsuLIN REG 1unit/0.01ml Soln (100units/ml) SC SCH ×3 (00:05→12:22)
[2022-11-05] MEDS: METOCLOPRAMIDE HCL 5MG/ml INJ 2ml VIAL IV SCH ×2 (05:55→15:24)
[2022-11-05 06:06] LABS: Potassium 3.9 mmol/L (3.5-5.1)
[2022-11-05 06:13] LABS: Albumin 1.6 g/dL (3.4-5.0); BUN/Creatinine Ratio 31.7 (10.0-20.0); Bilirubin, Total 0.2 mg/dL (0.2-1.0); Calcium 9.6 mg/dL (8.5-10.1); Magnesium 2.4 mg/dL (1.6-2.6); Phosphorus 4.7 mg/dL (2.5-4.90); Total Protein 5.7 g/dL (6.4-8.2)
[2022-11-05] MEDS: IPRATROPIUM BROM 0.5 MG/2.5ML INH SOL NEB SCH ×2 (06:32→11:50)
[2022-11-05] MEDS: ALBUTEROL SULF 2.5 MG/0.5ML(0.5%) NEB SOLN NEB SCH ×2 (06:32→11:50)
[2022-11-05] MEDS: PANCREATIC ENZYMES 4200 UNIT CAP PO SCH ×2 (08:00→12:00)
[2022-11-05] MEDS ORDERED: APIXABAN 2.5 MG TAB PO SCH (10:00)
[2022-11-05] MEDS: FLUCONAZOLE 200MG/100ML 100 ML IV SCH ×2 (10:17→12:24)
[2022-11-05] MEDS: PANTOPRAZOLE 40 MG/10 ML VIAL INJ IV SCH (10:18)
[2022-11-05] MEDS: SODIUM CHLOR 0.9% PF (SALINE LOCK) 10ML VIAL/SYR IV SCH (10:18)
[2022-11-05] MEDS: LEVOTHYROXINE SODIUM 100 MCG/5 ML INJ IV SCH (10:19)
[2022-11-05] MEDS: LACTULOSE 20Gm/30ML SOLN PO SCH (10:19)
[2022-11-05 12:36] LABS: Hepatitis A Ab IgM Negative; Hepatitis B Surface Antigen Negative (Negative)
[2022-11-05 12:37] LABS: Hepatitis B Core IgM Negative; Hepatitis C Antibody Negative (Negative)
[2022-11-05] MEDS ORDERED: TPN PER PHARMACY IV NR ×10 (20:00)
== END 2022-11-05 18:00 | disposition hospice, home (50) | DRG 469 ==
LOC: ER 11:24 → OVERFLOW 16:00 → WEST WING 10-28 22:20
PROVIDERS: ADMIT Nurse Practitioner Acute Care; ATTEND Nurse Practitioner Acute Care
PROC: 02HV33Z Insertion of Infusion Device into Superior Vena Cava, Percutaneous Approach (ICD-10-PCS; 2022-10-31)
PROC: B548ZZA Ultrasonography of Superior Vena Cava, Guidance (ICD-10-PCS; 2022-10-31)
PROC: 0TB03ZX Excision of Right Kidney, Percutaneous Approach, Diagnostic (ICD-10-PCS; principal; 2022-11-02)
DX: N17.0 Acute kidney failure with tubular necrosis (principal); B38.7 Disseminated coccidioidomycosis; K85.90 Acute pancreatitis without necrosis or infection, unspecified; E43 Unspecified severe protein-calorie malnutrition; B38.0 Acute pulmonary coccidioidomycosis; I82.412 Acute embolism and thrombosis of left femoral vein; E87.20 Acidosis, unspecified; M86.8X6 Other osteomyelitis, lower leg; I82.432 Acute embolism and thrombosis of left popliteal vein; D63.8 Anemia in other chronic diseases classified elsewhere; E83.39 Other disorders of phosphorus metabolism; R62.7 Adult failure to thrive; E86.0 Dehydration; S81.001A Unspecified open wound, right knee, initial encounter; R33.9 Retention of urine, unspecified; Z66 Do not resuscitate; Z68.1 Body mass index [BMI] 19.9 or less, adult; K59.00 Constipation, unspecified; K86.1 Other chronic pancreatitis; R74.8 Abnormal levels of other serum enzymes; R80.9 Proteinuria, unspecified; E03.9 Hypothyroidism, unspecified; M06.9 Rheumatoid arthritis, unspecified; E87.6 Hypokalemia; E83.52 Hypercalcemia; I12.9 Hypertensive chronic kidney disease with stage 1 through stage 4 chronic kidney disease, or unspecified chronic kidney disease; K21.9 Gastro-esophageal reflux disease without esophagitis; M17.11 Unilateral primary osteoarthritis, right knee; Z51.5 Encounter for palliative care; Z86.11 Personal history of tuberculosis; Z88.0 Allergy status to penicillin; X58.XXXA Exposure to other specified factors, initial encounter; Y93.89 Activity, other specified; Y92.89 Other specified places as the place of occurrence of the external cause; Y99.8 Other external cause status; N18.32 Chronic kidney disease, stage 3b
CPT/HCPCS: 36415; 36569; 70450; 71045; 71250; 73562; 73700; 74176; 76705; 76775; 76942; 78306; 80053; 80069; 80074; 81001; 82150; 82306; 82570; 82784; 82962; 83615; 83690; 83735; 83880; 83883; 83970; 84100; 84155; 84156; 84165; 84300; 84443; 84478; 84484; 85025; 85610; 85652; 85730; 86141; 86301; 86334; 86335; 86635; 86703; 87081; 87205; 93005; 93971; 94640; 96361; 96374; 97110; 97116; 97163; 97530; 99291; C9113; G0378; J1450; J1815; J2248; J2250; J2405; J3465; J3480; J3490; J7060